=== PATIENT | male | born 1970 | race Caucasian/White ===

== ENCOUNTER 2022-04-02 08:51 | Outpatient (REF) | payer BC, SELFPAY ==
[2022-04-02 11:17] LABS: Hematocrit 48.8 % (42.0-52.0); Hemoglobin 16.2 g/dl (14.0-18.0); Mean Corpuscular HGB Conc 33.2 g/dl (31.0-36.0); Mean Corpuscular Hemoglobin 31.4 pg (27.0-33.0); Mean Corpuscular Volume 94.6 fL (80.0-98.0); Mean Platelet Volume 11.8 fL (9.4-12.4); Platelet Count 253 X10*3/uL (160-400); Red Blood Count 5.16 X10*6/uL (4.60-5.80); Red Cell Distribution Width 12.7 % (11.0-16.0); White Blood Count 5.6 X10*3/uL (4.8-10.8)
[2022-04-02 11:56] LABS: Alanine Aminotransferase 36 U/L (0-40); Albumin Level 4.4 g/dL (3.5-5.0); Alkaline Phosphatase 66 U/L (39-117); Anion Gap 14 (12-20); Aspartate Amino Transferase 25 U/L (5-37); Bilirubin Total 0.4 mg/dL (0.0-1.0); Blood Urea Nitrogen 17 mg/dL (9-16); Calcium 9.1 mg/dL (8.4-10.2); Carbon Dioxide 25 mmol/L (22-29); Chloride 109 mmol/L (96-108); Cholesterol 177 mg/dL; Estimated Glomerular Filt Rate > 60; Glucose Fasting 93 mg/dL (60-99); HDL Cholesterol 28 mg/dL; LDL Cholesterol Calculated 124 mg/dl; Potassium 4.5 mmol/L (3.3-5.1); Sodium 143 mmol/L (135-145); Total Protein 7.3 g/dL (6.5-8.0); Triglycerides 128 mg/dL
[2022-04-02 12:00] LABS: Prostate Specific Antigen Scr 0.29 ng/mL (<0.05-4.0)
== END 2022-04-02 08:52 | disposition home or self-care (01) ==
LOC: HO.HMGCLDS 08:51
PROVIDERS: PCP Internal Medicine; Visit Provider Internal Medicine
DX: Z00.00 Encounter for general adult medical examination without abnormal findings (principal); Z12.5 Encounter for screening for malignant neoplasm of prostate; K21.9 Gastro-esophageal reflux disease without esophagitis
CPT/HCPCS: 36415; 80053; 80061; 84153; 85027

== ENCOUNTER 2022-04-09 10:55 | Outpatient (REF) | payer BC, SELFPAY ==
[2022-04-09 13:33] LABS: Appearance Urine CLEAR; Color Urine YELLOW; Glucose Urine UA NEG (NEG); Leukocyte Esterase Urine NEG (NEG); Nitrite Urine NEG (NEG); Urine Blood NEG (NEG); Urine Ketones NEG (NEG); Urine Protein NEG (NEG-TRACE)
[2022-04-09 13:40] LABS: RBC Urine 0 /HPF (0); WBC Urine 0 /HPF (0-4)
== END 2022-04-09 10:56 | disposition home or self-care (01) ==
LOC: HO.HMGCLNP 10:55
PROVIDERS: PCP Internal Medicine; Visit Provider Internal Medicine
DX: Z00.00 Encounter for general adult medical examination without abnormal findings (principal); K21.9 Gastro-esophageal reflux disease without esophagitis
CPT/HCPCS: 81001

== ENCOUNTER 2023-05-31 13:17 | Outpatient (AMB) | payer BC, SELFPAY ==
[2023-05-31 13:23] VITALS: BP 132/80; PULSE 94; O2SAT 96; BMI 36.3
--- NOTE | 2023-05-31 13:23 | MHC.PC.OV ---
Vital Signs 05/31/23 13:23 Height 6 ft Weight 267 lb 6 oz BMI 36.3 BP 132/80 Blood Pressure Location Lt brachial Position Sitting Pulse 94 Pulse Source Pulse Oximeter Pulse Oximetry (%) 96 Oxygen Delivery Method Room Air Intake Visit Reasons: R side back pain and hip ,numbness Intake Note: pt is here for pain and numbness on his right side of his back and hip for the past 2 months pt says it is the worse at the end of the day of work pt says he gets the pain in his groin area Allergies Milk Containing Products (Dairy) [Milk Containing Products] Adverse Reaction (Verified 05/31/23 13:27) Hives Medication List - Last Reconciled 05/31/23 by Sisi Morrow MD baclofen 10 mg PO BID meloxicam 15 mg PO DAILY omeprazole 20 mg PO DAILY Tobacco use date assessed: 03/03/22 HPI R side back pain and hip ,numbness HPI Details Pt presents c/o R side LBP radiating to RLE , worse when standing or walking. patient complains of right groin pain when walking. He noticed some right thigh tingling sensation and difficulty lifting right leg when walking up the stairs. patient denies any change in bowel or bladder function. patient has to lift heavy chains at work [facility] Medical History Annual physical exam Cough GERD (gastroesophageal reflux disease) Obese Surgical History Hx of colonoscopy Social History Housing: House Patient Tobacco Use Status: Former Tobacco user e-Cigarette/Vaping Use: Never Used service: No Current occupational status: employed Cognitive needs: No Hearing needs: No Vision needs: Yes Questionnaire Thrive Questionnaire Date Thrive assessed: 03/03/22 JUAN C-7 AMB Questionnaire JUAN C-7 Date JUAN C - 7 assessed: 03/03/22 Source: Developed by Drs. Thomas Palmer, Darshana Moeller, Sage Reeder and colleagues, with an educational thomas from [employer] Review of Systems Const All systems reviewed & are unremarkable except as noted in HPI and below Reports no additional complaints Eyes Reports no additional complaints ENT Reports no additional complaints Card Reports no additional complaints Resp Reports no additional complaints GI Reports no additional complaints Physical exam (Primary Care) Vital Signs: Last Vital Signs Pulse 94 05/31/23 13:23 BP 132/80 05/31/23 13:23 Pulse Ox 96 05/31/23 13:23 Oxygen Delivery Method Room Air 05/31/23 13:23 BMI result Body Mass Index 36.3 Tobacco/Smoking Status: Tobacco use Status Tobacco use date assessed 03/03/22 05/31/23 13:30 Patient Tobacco Use Status Former Tobacco user 05/31/23 13:30 e-Cigarette/Vaping Use Never Used 05/31/23 13:30 Thrive Assessment: Date of Thrive Assessment Date Thrive assessed 03/03/22 05/31/23 13:30 Const General: no acute distress HENMT Head: Yes normal to inspection Resp Effort & Inspection: normal respiratory effort Auscultation: clear to auscultation bilaterally Cardio Rhythm: regular rhythm Heart sounds: S1 normal heart sound present and S2 normal heart sound present GI Palpation (GI): Soft to palpation Percussion: Yes normal to percussion Auscultation: normal bowel sounds Back/Spine/Pelvis Other: paraspinal tenderness lower lumbar region right more than left, decreased range of motion lumbar spine, straight leg rising 90 degrees bilaterally. Deep tendon reflexes 0+ bilaterally motor strength 4/5 in the right proximal lower extremity and 5/5 the left lower extremity Extrem General: Yes no clubbing, cyanosis or edema Assessment and Plan Assessment & Plan (1) Sciatica: Code(s): M54.30 - Sciatica, unspecified side Plan: obtain x-ray of lumbar spine and both hips meloxicam and baclofen a prescribed and patient will try physical therapy. Out of work note for 2 weeks until June 19 (2) Hip pain, bilateral: Code(s): M25.551 - Pain in right hip; M25.552 - Pain in left hip Plan: check x-rays of both hips Orders: Orders XR hip BI w PEL1V Today M25.551 - Pain in right hip, M25.552 - Pain in left hip, M54.30 - Sciatica, unspecified side XR lumbar spine 2-3V Today M25.551 - Pain in right hip, M25.552 - Pain in left hip, M54.30 - Sciatica, unspecified side PT Evaluation and Treatment Today M25.551 - Pain in right hip, M25.552 - Pain in left hip, M54.30 - Sciatica, unspecified side Medications: New meloxicam 15 mg PO DAILY 10 tabs 0RF baclofen 10 mg PO BID 30 tabs 0RF Coding Level of Care Code Est Pt Level 3 (69966) Diagnoses Sciatica M54.30 Hip pain, bilateral M25.551; M25.552
== END 2023-05-31 14:14 | disposition home or self-care (01) ==
PROVIDERS: PCP Internal Medicine; Visit Provider Internal Medicine
DX: M54.30 Sciatica, unspecified side (principal); M25.551 Pain in right hip; M25.552 Pain in left hip
CPT/HCPCS: 99213

== ENCOUNTER 2023-05-31 15:45 | Outpatient (REF) | payer BC, SELFPAY ==
--- NOTE | ~2023-05-31 | XR_ITS ---
STUDY: Lumbar spine, AP pelvis and bilateral hips INDICATION: Right hip pain COMPARISON: None TECHNIQUE: 3 view lumbar spine, AP pelvis, AP and frog lateral bilateral hips Lumbar spine: Lumbar lordotic straightening. 5 lumbar type vertebral bodies are identified with multilevel spurring and vertebral body height loss, most pronounced L5. Disc spaces are preserved. Pedicles are intact. Pelvis and hips: Bony pelvis is intact. No fracture, dislocation or significant joint space narrowing. SI joints within normal limits. Mild lesser trochanteric spurring on the left. Left hemipelvic phlebolith. Soft tissue density in the pelvis likely bladder. XR/XR lumbar spine 2-3V IMPRESSION: No acute bony pathology lumbar spine, pelvis and bilateral hips. Lumbar lordotic straightening, degenerative changes and multilevel mild vertebral body height losses. Left lesser trochanteric spurring.
--- NOTE | ~2023-05-31 | XR_ITS ---
STUDY: Lumbar spine, AP pelvis and bilateral hips INDICATION: Right hip pain COMPARISON: None TECHNIQUE: 3 view lumbar spine, AP pelvis, AP and frog lateral bilateral hips Lumbar spine: Lumbar lordotic straightening. 5 lumbar type vertebral bodies are identified with multilevel spurring and vertebral body height loss, most pronounced L5. Disc spaces are preserved. Pedicles are intact. Pelvis and hips: Bony pelvis is intact. No fracture, dislocation or significant joint space narrowing. SI joints within normal limits. Mild lesser trochanteric spurring on the left. Left hemipelvic phlebolith. Soft tissue density in the pelvis likely bladder. XR/XR hip BI w PEL1V IMPRESSION: No acute bony pathology lumbar spine, pelvis and bilateral hips. Lumbar lordotic straightening, degenerative changes and multilevel mild vertebral body height losses. Left lesser trochanteric spurring.
== END 2023-05-31 15:46 | disposition home or self-care (01) ==
LOC: HO.HMGCX 15:45
PROVIDERS: PCP Internal Medicine; Visit Provider Internal Medicine
DX: M25.551 Pain in right hip (principal); M25.552 Pain in left hip; M54.30 Sciatica, unspecified side
CPT/HCPCS: 72100; 73521

== ENCOUNTER 2023-06-19 09:04 | Outpatient (AMB) | payer BC, SELFPAY ==
[2023-06-19 09:44] VITALS: BP 124/82; PULSE 82; O2SAT 99; BMI 35.9
--- NOTE | 2023-06-19 09:44 | A.OFFPC_ITS ---
Vital Signs 06/19/23 09:44 Height 6 ft Weight 265 lb BMI 35.9 BP 124/82 Blood Pressure Location Lt brachial Position Sitting Pulse 82 Pulse Source Pulse Oximeter Pulse Oximetry (%) 99 Oxygen Delivery Method Room Air Intake Visit Reasons: 1m follow up Intake Note: Pt is here today for a 1 month follow up on sciatica pain. Pt states that his pain is the same not any better. Pt states that he gets burning sensation and numbness in his R leg. Allergies Milk Containing Products (Dairy) [Milk Containing Products] Adverse Reaction (Verified 06/19/23 09:48) Hives Medication List - Last Reconciled 06/19/23 by Sisi Morrow MD baclofen 10 mg PO BID meloxicam 15 mg PO DAILY omeprazole 20 mg PO DAILY Tobacco use date assessed: 06/19/23 Dental Screening Dental Screen Date: 06/19/23 Did you have a dental visit in the last 12 months?: Yes Did you have a dental problem in the last 6 months where you did not have access to dental care?: No Was dental information given to patient?: Patient has dentist HPI 1m follow up HPI Details Patient presents for the follow-up of lower back pain radiating to right lower extremity anterior thigh, worse when walking longer distance for 1 month. Patient will be started physical therapy this week. He had some relief with meloxicam. Patient denies change in bowel bladder function, weakness or numbness in extremities. [facility] Medical History Annual physical exam Cough GERD (gastroesophageal reflux disease) Obese Surgical History Hx of colonoscopy Social History Housing: House Patient Tobacco Use Status: Former Tobacco user e-Cigarette/Vaping Use: Never Used service: No Current occupational status: employed Cognitive needs: No Hearing needs: No Vision needs: Yes Questionnaire Thrive Questionnaire Date Thrive assessed: 03/03/22 I am a: Patient What is your living situation today?: I have a steady place to live Within the past 12 months, did the food you bought not last and you didn't have the money to get more?: Never true Within the past 12 months, did you worry whether your food would run out before you got money to buy more?: Never true AUDIT C Alcohol Use Questionnaire (AUDIT-C) 1. How often do you have a drink containing alcohol?: Monthly or less 2. How many drinks containing alcohol do you have on a typical day when you are drinking?: 3 or 4 3. How often do you have six or more drinks on one occasion?: Less than monthly Total Score: 3 JUAN C-7 AMB Questionnaire JUAN C-7 Date JUAN C - 7 assessed: 03/03/22 Feeling nervous, anxious, or on edge: 3 = Nearly every day Not being able to stop or control worryin = Nearly every day Worrying too much about different things: 2 = More than half the days Trouble relaxin = More than half the days Being so restless that it is hard to sit still: 3 = Nearly every day Becoming easily annoyed or irritable: 3 = Nearly every day Feeling afraid as if something awful might happen: 1 = Several days Total JUAN C-7 score (0-4 normal; 5-9 mild; 10-14 moderate; 15-21 severe): 17 Source: Developed by Drs. Thomas Palmer, Darshana Moeller, Sage Reeder and colleagues, with an educational thomas from [employer]. Review of Systems Const All systems reviewed & are unremarkable except as noted in HPI and below Reports no additional complaints Eyes Reports no additional complaints ENT Reports no additional complaints Card Reports no additional complaints Resp Reports no additional complaints GI Reports no additional complaints Reports no additional complaints Physical exam (Primary Care) Vital Signs: Last Vital Signs Pulse 82 06/19/23 09:44 BP 124/82 06/19/23 09:44 Pulse Ox 99 06/19/23 09:44 Oxygen Delivery Method Room Air 06/19/23 09:44 BMI result Body Mass Index 35.9 Tobacco/Smoking Status: Tobacco use Status Tobacco use date assessed 06/19/23 06/19/23 09:51 Patient Tobacco Use Status Former Tobacco user 06/19/23 09:47 e-Cigarette/Vaping Use Never Used 06/19/23 09:47 Thrive Assessment: Date of Thrive Assessment Date Thrive assessed 03/03/22 06/19/23 09:47 Const General: no acute distress HENMT Head: Yes normal to inspection Neck Neck: Yes supple Resp Effort & Inspection: normal respiratory effort Auscultation: clear to auscultation bilaterally Cardio Rhythm: regular rhythm Heart sounds: S1 normal heart sound present and S2 normal heart sound present Back/Spine/Pelvis Other: Decreased range of motion in the lumbar spine, paraspinal tenderness in the lower lumbar region right more than left, straight leg rising 30 degrees on the right 90 degrees on the left deep tendon reflexes 1+ bilaterally Assessment and Plan Assessment & Plan (1) Sciatica: Code(s): M54.30 - Sciatica, unspecified side Plan: Patient will be starting physical therapy meloxicam and baclofen are refilled. he will follow-up in 3 weeks Medications: Refilled baclofen 10 mg PO BID 30 tabs 0RF meloxicam 15 mg PO DAILY 30 tabs 0RF Coding Level of Care Code Est Pt Level 3 (30319) Diagnoses Sciatica M54.30
== END 2023-06-19 10:53 | disposition home or self-care (01) ==
PROVIDERS: PCP Internal Medicine; Visit Provider Internal Medicine
DX: M54.30 Sciatica, unspecified side (principal)
CPT/HCPCS: 99213

== ENCOUNTER 2023-07-21 13:55 | Outpatient (AMB) | payer BC, SELFPAY ==
[2023-07-21 14:01] VITALS: BP 124/80; PULSE 102; O2SAT 98; BMI 36.6
--- NOTE | 2023-07-21 14:01 | MHC.PC.OV ---
Vital Signs 07/21/23 14:01 Height 6 ft Weight 270 lb BMI 36.6 BP 124/80 Blood Pressure Location Lt brachial Position Standing Pulse 102 H Pulse Source Pulse Oximeter Pulse Oximetry (%) 98 Oxygen Delivery Method Room Air Intake Visit Reasons: 1 Month follow up Intake Note: Pt is here today for 1 month follow up visit. Allergies Milk Containing Products (Dairy) [Milk Containing Products] Adverse Reaction (Verified 07/21/23 14:10) Hives Medication List - Last Reconciled 07/21/23 by Sisi Morrow MD omeprazole 20 mg PO DAILY Tobacco use date assessed: 06/19/23 HPI 1 Month follow up HPI Details Patient presents for the follow-up of sciatica. He is feeling better but still complains of bilateral leg/ hip tightness and pain after walking for 1 mile. he is having physical therapy twice a week and has been exercising daily at home. [facility] Medical History Annual physical exam Cough GERD (gastroesophageal reflux disease) Obese Surgical History Hx of colonoscopy Social History Housing: House Patient Tobacco Use Status: Former Tobacco user e-Cigarette/Vaping Use: Never Used service: No Current occupational status: employed Cognitive needs: No Hearing needs: No Vision needs: Yes Questionnaire Thrive Questionnaire Date Thrive assessed: 03/03/22 JUAN C-7 AMB Questionnaire JUAN C-7 Date JUAN C - 7 assessed: 03/03/22 Source: Developed by Drs. Thomas Palmer, Darshana Moeller, Sage Reeder and colleagues, with an educational thomas from [employer]. Review of Systems Const All systems reviewed & are unremarkable except as noted in HPI and below Reports no additional complaints ENT Reports no additional complaints Physical exam (Primary Care) Vital Signs: Last Vital Signs Pulse 102 H 07/21/23 14:01 BP 124/80 07/21/23 14:01 Pulse Ox 98 07/21/23 14:01 Oxygen Delivery Method Room Air 07/21/23 14:01 BMI result Body Mass Index 36.6 Tobacco/Smoking Status: Tobacco use Status Tobacco use date assessed 06/19/23 07/21/23 14:02 Patient Tobacco Use Status Former Tobacco user 07/21/23 14:02 e-Cigarette/Vaping Use Never Used 07/21/23 14:02 Thrive Assessment: Date of Thrive Assessment Date Thrive assessed 03/03/22 07/21/23 14:02 HENMT Head: Yes normal to inspection Neck Neck: Yes supple Resp Effort & Inspection: normal respiratory effort Auscultation: clear to auscultation bilaterally Cardio Rhythm: regular rhythm Heart sounds: S1 normal heart sound present and S2 normal heart sound present Extrem Other: Decreased range of motion lumbar spine, straight leg rising 45 degrees bilaterally decreased range of motion both hips Assessment and Plan Assessment & Plan (1) Annual physical exam: Code(s): Z00.00 - Encounter for general adult medical examination without abnormal findings (2) Sciatica: Code(s): M54.30 - Sciatica, unspecified side Plan: Continue physical therapy and out of work until September 04. Patient will return for physical in 3 months with a fasting labs before. Weight loss discussed with the patient (3) Hip pain, bilateral: Code(s): M25.551 - Pain in right hip; M25.552 - Pain in left hip Orders: Orders Lipid Panel 3 Months Z00.00 - Encounter for general adult medical examination without abnormal findings Complete Blood Count Auto Diff 3 Months Z00.00 - Encounter for general adult medical examination without abnormal findings PSA,Total (Free>4and<10) 3 Months Z00.00 - Encounter for general adult medical examination without abnormal findings Comprehensive [place]. Panel Fast 3 Months Z00.00 - Encounter for general adult medical examination without abnormal findings Medications: Discontinued baclofen Discontinued Reason: Doctor's Order 10 mg PO BID 30 tabs 0RF meloxicam Discontinued Reason: Doctor's Order 15 mg PO DAILY 30 tabs 0RF Coding Level of Care Code Est Pt Level 3 (13860) Diagnoses Annual physical exam Z00.00 Sciatica M54.30 Hip pain, bilateral M25.551; M25.552
== END 2023-07-21 14:53 | disposition home or self-care (01) ==
PROVIDERS: PCP Internal Medicine; Visit Provider Internal Medicine
DX: M25.551 Pain in right hip (principal); M25.552 Pain in left hip; M54.30 Sciatica, unspecified side
CPT/HCPCS: 99213

== ENCOUNTER 2023-08-22 09:00 | Outpatient (RCR) | payer BC, SELFPAY ==
--- NOTE | 2023-06-20 08:48 | MHC.PT.EP ---
[facility] [place] Office [place] Office [place] Office [address] Carmelo Novak [address] [phone] F: [phone] F: [phone] F: [phone] F: [phone] Physical Therapy Plan of Care Date of Evaluation: Date of Surgery: Diagnosis: Sciatica and R hip pain Assessment: Patient is a 53 year old R handed male who presents with s/s consistent with sciatica and hip pain. 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 Patient past medical history is fairly unremarkable and non-contributory. Current impairments include pain, posture, ROM, strength, flexibility, activity tolerance and functional mobility. Functional limitations include decreased ability to lift, carry, walk, push, pull, sleep, and maintain positions. Patient is motivated with good rehab potential. Skilled PT will address impairments and functional limitations in order to achieve goals. Frequency and Duration: The patient will be seen 2x/week for 5 weeks. Short Term Goals: I with HEP - 2 week Lumbar AROM rotation - 75 - 3 weeks HS flex lacking 25 b/l - 3 weeks Development Intern Goals: Oswestry 20% or better - 5 weeks Max pain with work/sleep - 3/10 - 5 weeks Able to stand/work/walk > 2 hours without increased pain - 5 weeks Treatment Plan: Modalities to reduce pain, spasms and effusion. Manual therapy to restore motion and function. Therapeutic exercise to improve strength and flexibility. Neuromuscular re-education for posture and balance. Therapeutic activities to return to functional activities of daily living. Electronically signed by: Miguel Montenegro, PT Please sign and return to therapist. Thank you for your referral.
--- NOTE | 2023-11-21 14:34 | MHC.PT.DC ---
[facility] [place] Office [place] [facility] [place] Office [address] Carmelo Novak [address] [phone] F: [phone] F: [phone] F: [phone] F: [phone] Physical Therapy Discharge Report Diagnosis: Sciatica and R hip pain Date of Surgery: Date of Evaluation: 06/20/23 Date of Discharge: 09/27/23 Treatments to Date: 14 Cancellations to Date: No Shows to Date: Discharge Status: Improved Function Independent with HEP Discharge Summary: 08/22/23: pt progressed well over the course of skilled PT. LEFS improved by 16 pts. He is I with HEP. AROM rotation is 75 and pain free. HS flex lacking 22 b/l. His max pain with sleep is 3/10 and he is able to walk about 1 mile, 4 times per day without increased pain. He is appropriate to d/c to HEP at this time. 08/15/23: pt progressing well overall but did have minor setback secondary to flu last week. we were able to continue with strength and stretching to tolerance. 08/08/23: pt progressing well with skilled PT. able to tolerate TM walking and strength well. no adverse reactions. continue to progress as tolerated. 08/02/23: pt continues to progress with strength and higher level activities. no adverse reactions today. continue to progress as tolerated. 07/25/23: pt has been progressing well still. we have been adding strength and functional activities. no adverse reactions. 07/21/23: pt progressing well with skilled PT, but still painful after 40 minutes of standing/walking (about 15 on evaluation). we will continue to progress until d/c to HEP. 07/19/23: pt with L hip pain presenting for first time today. we did discuss and address this, reviewed imaging as well with appropriate edu related to findings. 07/14/23: pt has been feeling less symptomatic and able to walk more. less TTP. less pain with higher level activities. 07/11/23: continuing to improve with skilled PT. functional improvements include walking and transfers. 07/07/23: pt is progressing well with skilled PT. Able to walk more. LEss pain with activity and at rest. Improved ease with transfers. 07/03/23: Pt notes having a lot of pain walking 1.5 miles yesterday. we will continue to adjust HEP to address this. added hip pendulums and re-issued HEP today. 06/30/23: good response to manual intervention. we will continue to work hip flex strength and functional strength. 06/26/23: added PB flexion for HEP. no adverse reactions today. pt compliant with program so far. responding well. 06/23/23: pt progressed with stretching and strength. cues given as needed and hep updated. cues required for row/ext to depress scap. Patient is a 53 year old R handed male who presents with s/s consistent with sciatica and hip pain. 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 Patient past medical history is fairly unremarkable and non-contributory. Current impairments include pain, posture, ROM, strength, flexibility, activity tolerance and functional mobility. Functional limitations include decreased ability to lift, carry, walk, push, pull, sleep, and maintain positions. Patient is motivated with good rehab potential. Skilled PT will address impairments and functional limitations in order to achieve goals. Electronically signed by: Miguel Montenegro, PT Please sign and return to therapist. Thank you for your referral.
== END 2023-11-21 14:34 | disposition home or self-care (01) ==
LOC: HO.PTCHIC 09:00
PROVIDERS: PCP Internal Medicine; Visit Provider Internal Medicine
DX: M54.30 Sciatica, unspecified side (principal); M25.551 Pain in right hip; M25.552 Pain in left hip
CPT/HCPCS: 97110; 97140; 97161

== ENCOUNTER 2023-10-14 06:45 | Outpatient (REF) | payer BC, SELFPAY ==
[2023-10-14 10:55] LABS: MANUAL DIFF FLAG NO
[2023-10-14 11:10] LABS: Basophils Absolute Auto 0.1 X10*3/uL (0.0-0.2); Basophils Percent Auto 0.6 % (0-2); Eosinophils Absolute Auto 0.2 X10*3/uL (0.0-0.4); Eosinophils Percent Auto 2.1 % (0-4); Hematocrit 48.8 % (42.0-52.0); Hemoglobin 15.8 g/dl (14.0-18.0); Imm Gran Abs Auto 0.03 X10*3/uL (0.00-0.03); Imm Gran Pct Auto 0.3 % (0.0-0.4); Lymphocytes Absolute Auto 1.1 X10*3/uL (1.2-4.9); Lymphocytes Percent Auto 12.5 % (20-40); Mean Corpuscular HGB Conc 32.4 g/dl (31.0-36.0); Mean Corpuscular Hemoglobin 30.3 pg (27.0-33.0); Mean Corpuscular Volume 93.7 fL (80.0-98.0); Mean Platelet Volume 11.3 fL (9.4-12.4); Monocytes Absolute Auto 0.9 X10*3/uL (0.1-1.2); Monocytes Percent Auto 10.4 % (2-11); Neutrophils Absolute Auto 6.7 x10*3/uL (2.0-8.3); Neutrophils Percent Auto 74.1 % (45-73); Platelet Count 236 X10*3/uL (160-400); Red Blood Count 5.21 X10*6/uL (4.60-5.80)
[2023-10-14 11:15] LABS: Alanine Aminotransferase 33 U/L (0-40); Albumin Level 4.3 g/dL (3.5-5.0); Alkaline Phosphatase 61 U/L (39-117); Anion Gap 13 (12-20); Aspartate Amino Transferase 23 U/L (5-37); Bilirubin Total 0.5 mg/dL (0.0-1.0); Blood Urea Nitrogen 18 mg/dL (9-16); Carbon Dioxide 24 mmol/L (22-29); Chloride 109 mmol/L (96-108); Cholesterol 174 mg/dL (<200); Estimated Glomerular Filt Rate > 60; Glucose Fasting 86 mg/dL (60-99); HDL Cholesterol 30 mg/dL (>40); LDL Cholesterol Calculated 122 mg/dL (<100); Potassium 4.2 mmol/L (3.3-5.1); Sodium 142 mmol/L (135-145); Total Protein 7.4 g/dL (6.5-8.0); Triglycerides 110 mg/dL (<150)
== END 2023-10-14 06:46 | disposition home or self-care (01) ==
LOC: HO.HMGCLDS 06:45
PROVIDERS: PCP Internal Medicine; Visit Provider Internal Medicine
DX: Z00.00 Encounter for general adult medical examination without abnormal findings (principal); Z12.5 Encounter for screening for malignant neoplasm of prostate
CPT/HCPCS: 36415; 80053; 80061; 84153; 85025

== ENCOUNTER 2023-10-25 07:32 | Outpatient (AMB) | payer BC, SELFPAY ==
--- NOTE | 2023-10-25 07:54 | MHC.PC.OV ---
Vital Signs 10/25/23 07:56 Height 6 ft Weight 278 lb BMI 37.7 BP 120/82 Blood Pressure Location Rt brachial Position Sitting Pulse 76 Pulse Source Pulse Oximeter Pulse Oximetry (%) 98 Oxygen Delivery Method Room Air Intake Visit Reasons: Follow up complex Allergies Milk Containing Products (Dairy) [Milk Containing Products] Adverse Reaction (Verified 10/25/23 07:56) Hives Medication List - Last Reconciled 10/25/23 by Sisi Morrow MD omeprazole 20 mg PO DAILY Tobacco use date assessed: 06/19/23 Dental Screening Dental Screen Date: 10/25/23 Did you have a dental visit in the last 12 months?: Yes Did you have a dental problem in the last 6 months where you did not have access to dental care?: No Was dental information given to patient?: Patient has dentist HPI HPI Comments History of Present Illness Details Patient presents for physical. he complains of chronic bilateral ankle pain worse at the end of the day when standing at work for 10 hours. Patient denies any injury or joint swelling. [facility] Medical History (Updated 10/25/23 @ 08:03 by Sisi Morrow MD) Obese GERD (gastroesophageal reflux disease) Annual physical exam Cough Surgical History (Updated 10/25/23 @ 08:12 by Sisi Morrow MD) Hx of colonoscopy Social History Housing: House Patient Tobacco Use Status: Former Tobacco user e-Cigarette/Vaping Use: Never Used service: No Current occupational status: employed Cognitive needs: No Hearing needs: No Vision needs: Yes Questionnaire Thrive Questionnaire Date Thrive assessed: 03/03/22 JUAN C-7 AMB Questionnaire JUAN C-7 Date JUAN C - 7 assessed: 03/03/22 Source: Developed by Drs. Thomas Palmer, Darshana Moeller, Sage Reeder and colleagues, with an educational thomas from [employer]. Review of Systems Const All systems reviewed & are unremarkable except as noted in HPI and below Reports no additional complaints Eyes Reports no additional complaints ENT Reports no additional complaints Card Reports no additional complaints Resp Reports no additional complaints GI Reports no additional complaints Reports no additional complaints Physical exam (Primary Care) Vital Signs: Last Vital Signs Pulse 76 10/25/23 07:56 BP 120/82 10/25/23 07:56 Pulse Ox 98 10/25/23 07:56 Oxygen Delivery Method Room Air 10/25/23 07:56 BMI result Body Mass Index 37.7 Tobacco/Smoking Status: Tobacco use Status Tobacco use date assessed 06/19/23 10/25/23 07:56 Patient Tobacco Use Status Former Tobacco user 10/25/23 07:56 e-Cigarette/Vaping Use Never Used 10/25/23 07:56 Thrive Assessment: Date of Thrive Assessment Date Thrive assessed 03/03/22 10/25/23 07:56 Const General: no acute distress HENMT Face and sinus: Yes normal facial exam Mouth: Normal oral and palatal mucosa present Throat: Yes posterior oropharynx normal Eyes General: appearance normal, both eyes and all related structures Neck Neck: Yes no lymphadenopathy and Yes supple Resp Effort & Inspection: normal respiratory effort Auscultation: clear to auscultation bilaterally Cardio Rhythm: regular rhythm Heart sounds: S1 normal heart sound present and S2 normal heart sound present GI Inspection: Yes normal to inspection Palpation (GI): Soft to palpation Percussion: Yes normal to percussion Auscultation: normal bowel sounds Extrem Other: Both ankles with full range of motion no joint swelling erythema warmth Assessment and Plan Assessment & Plan (1) Ankle pain, chronic: Code(s): M25.579 - Pain in unspecified ankle and joints of unspecified foot; G89.29 - Other chronic pain Plan: Obtain x-rays, PT was recommended but patient declined. (2) Cough: Code(s): R05.9 - Cough, unspecified (3) Annual physical exam: Code(s): Z00. - Encounter for general adult medical examination without abnormal findings Plan: Well-balanced diet regular physical activity weight loss discussed with the patient. Physical in 1 year with fasting labs before Orders: Orders XR ankle LT 2V Today G89.29 - Other chronic pain, M25.579 - Pain in unspecified ankle and joints of unspecified foot XR ankle RT 2V Today G89.29 - Other chronic pain, M25.579 - Pain in unspecified ankle and joints of unspecified foot XR chest 1V Today R05.9 - Cough, unspecified UA w Microscopic 365 Days Z00.00 - Encounter for general adult medical examination without abnormal findings Comprehensive [place]. Panel Fast 365 Days Z00.00 - Encounter for general adult medical examination without abnormal findings Complete Blood Count Auto Diff 365 Days Z00.00 - Encounter for general adult medical examination without abnormal findings Lipid Panel 365 Days Z00.00 - Encounter for general adult medical examination without abnormal findings PSA,Total (Free>4and<10) 365 Days Z00.00 - Encounter for general adult medical examination without abnormal findings Coding Level of Care Code Est Pt Prev Care 40-64y(23119) Diagnoses Ankle pain, chronic M25.579; G89.29 Cough R05.9 Annual physical exam Z00.00
[2023-10-25 07:56] VITALS: BP 120/82; PULSE 76; O2SAT 98; BMI 37.7
== END 2023-10-25 08:24 | disposition home or self-care (01) ==
PROVIDERS: PCP Internal Medicine; Visit Provider Internal Medicine
DX: M25.579 Pain in unspecified ankle and joints of unspecified foot (principal); G89.29 Other chronic pain; R05.9 Cough, unspecified; Z00.00 Encounter for general adult medical examination without abnormal findings
CPT/HCPCS: 99396

== ENCOUNTER 2023-11-11 10:03 | Outpatient (REF) | payer BC, SELFPAY ==
--- NOTE | ~2023-11-11 | XR_ITS ---
EXAMINATION: XR CHEST CLINICAL INFORMATION: Cough. COMPARISON: None available. TECHNIQUE: Frontal view of the chest was obtained. FINDINGS: Lung volumes are low. There is no gross pneumothorax. Cardiomediastinal silhouette difficult to evaluate due to low lung volumes. Moderate patchy bibasilar opacities, left greater than right, may represent pneumonia. XR/XR chest 1V IMPRESSION: Moderate patchy bibasilar opacities, left greater than right, may represent pneumonia. Low lung volumes. Recommend follow-up imaging in 4-6 weeks to confirm resolution and exclude underlying pathology. This study was presented today 11/15/2023 at 10:50 AM for interpretation. PSA staff will provide results to referring provider at this time.
--- NOTE | ~2023-11-11 | XR_ITS ---
EXAMINATION: XR ANKLE, RIGHT XR ANKLE, LEFT CLINICAL INFORMATION: Pain in unspecified ankle and joints of foot. COMPARISON: None available. TECHNIQUE: 3 views of each ankle. FINDINGS: RIGHT ANKLE: Small dorsal and plantar calcaneal spurs. Moderate degenerative changes at the ankle. Alignment preserved. LEFT ANKLE: Small dorsal calcaneal spur. Abundant hypertrophic change at the dorsal aspect of the midfoot with possible destructive component. Dedicated views of the foot recommended for further evaluation. A 9 mm ossicle inferior to the lateral malleolus of indeterminate age and etiology. XR/XR ankle RT 2V IMPRESSION: RIGHT ANKLE: Small dorsal and plantar calcaneal spurs. LEFT ANKLE: 1. Abundant hypertrophic change at the dorsal aspect of the midfoot with possible destructive component. Dedicated views of the foot recommended for further evaluation. 2. Small dorsal calcaneal spur. 3. A 9 mm ossicle inferior to the lateral malleolus of indeterminate age and etiology. Recommend follow-up imaging in 10-14 days if fracture is suspected.
--- NOTE | ~2023-11-11 | XR_ITS ---
EXAMINATION: XR ANKLE, RIGHT XR ANKLE, LEFT CLINICAL INFORMATION: Pain in unspecified ankle and joints of foot. COMPARISON: None available. TECHNIQUE: 3 views of each ankle. FINDINGS: RIGHT ANKLE: Small dorsal and plantar calcaneal spurs. Moderate degenerative changes at the ankle. Alignment preserved. LEFT ANKLE: Small dorsal calcaneal spur. Abundant hypertrophic change at the dorsal aspect of the midfoot with possible destructive component. Dedicated views of the foot recommended for further evaluation. A 9 mm ossicle inferior to the lateral malleolus of indeterminate age and etiology. XR/XR ankle LT 2V IMPRESSION: RIGHT ANKLE: Small dorsal and plantar calcaneal spurs. LEFT ANKLE: 1. Abundant hypertrophic change at the dorsal aspect of the midfoot with possible destructive component. Dedicated views of the foot recommended for further evaluation. 2. Small dorsal calcaneal spur. 3. A 9 mm ossicle inferior to the lateral malleolus of indeterminate age and etiology. Recommend follow-up imaging in 10-14 days if fracture is suspected.
== END 2023-11-11 10:04 | disposition home or self-care (01) ==
LOC: HO.HMGCX 10:03
PROVIDERS: PCP Internal Medicine; Visit Provider Internal Medicine
DX: M25.571 Pain in right ankle and joints of right foot (principal); M25.572 Pain in left ankle and joints of left foot; R05.9 Cough, unspecified; G89.29 Other chronic pain
CPT/HCPCS: 71045; 73600

== ENCOUNTER 2023-12-09 11:08 | Outpatient (REF) | payer BC, SELFPAY ==
--- NOTE | ~2023-12-09 | XR_ITS ---
EXAMINATION: XR CHEST CLINICAL INFORMATION: Pneumonia COMPARISON: Radius chest x-ray 11/11/2023 TECHNIQUE: 2 views of the chest were obtained. FINDINGS: No significant abnormality is noted involving the heart, lungs, mediastinum, bony thorax or soft tissues. Degenerative changes of the spine. XR/XR chest 2V IMPRESSION: Unremarkable examination. No evidence of pneumonia.
--- NOTE | ~2023-12-09 | XR_ITS ---
EXAMINATION: XR foot LT min 3V CLINICAL INFORMATION: Reason for Exam M79.672 - Pain in left foot COMPARISON: None. TECHNIQUE: AP, lateral, and oblique views of the left foot FINDINGS: * No acute fracture or dislocation. * Dorsal midfoot degenerative changes with spurring. Insertional enthesopathy. * No soft tissue abnormality. XR/XR foot LT min 3V IMPRESSION: No acute fracture or dislocation. Dorsal midfoot degenerative changes with spurring. Insertional enthesopathy.
== END 2023-12-09 11:09 | disposition home or self-care (01) ==
LOC: HO.HMGCX 11:08
PROVIDERS: PCP Internal Medicine; Visit Provider Internal Medicine
DX: M79.672 Pain in left foot (principal); J18.9 Pneumonia, unspecified organism
CPT/HCPCS: 71046; 73630

== ENCOUNTER 2024-04-19 13:29 | Outpatient (AMB) | payer BC, SELFPAY ==
[2024-04-19 13:32] VITALS: BP 158/80; PULSE 105; O2SAT 94; BMI 40.9
--- NOTE | 2024-04-19 13:32 | MHC.OFFVIS ---
Vital Signs 04/19/24 13:32 Height 5 ft 10.28 in Weight 287 lb 4.197 oz BMI 40.9 BP 158/80 H Blood Pressure Location Rt brachial Position Sitting Pulse 105 H Pulse Source Pulse Oximeter Pulse Oximetry (%) 94 Oxygen Delivery Method Room Air Intake Visit Reasons: Joint Pain Intake Note: New patient, internally referred, presents to office today for joint pain. He is accompanied by his who will be facilitating the communication. He reports pain in multiple joints. Pain started over 10 years ago Senior Staff Specialized Employment Required: Yes Senior Staff Specialized Employment Language: Mohawk Senior Staff Specialized Employment Name: - form signed Accompanied by: Allergies Milk Containing Products (Dairy) [Milk Containing Products] Adverse Reaction (Verified 04/19/24 13:38) Hives HPI Comments Details: Mr. Davies 54 yoM, accompanied by his who translates, on referral from his PCP, for chronic pain of many years to ankle, foot and shoulder that has worsened in the last year. his shares that he is not one who complains and is always ready to do things and get things done. However, she has noticed in the last year, that he walks like a duck and cannot do as much as before because of pain in the feet. --affect walking, sleep --advil doesn't help --aspercreme with lidocaine helps feet - top and bottom --resting his hand on table causes pain to shoot up to elbow, more frequent on the right --stiffness after sitting, takes about 15- 20 minutes to loosen up --Hip pain used to radiate down the right leg before PT- that does not radiate anymore. Before PT, he could not go into the car due to pain in left hip and back. --hard to do hard work now - used to be very active --denies dry eyes, mouth, mouth sores, rashes, chronic fevers, --denies GI and concerns. --denies photosensitivity right pip #2 sore, left 4th CMC sore. right tennis elbow --ulnar paraethesia --non-pitting swelling to LLE. --left lateral hip tenderness/ L>R PFSH Medical History (Updated 04/20/24 @ 14:50 by IBAN Basurto-KEREN) Leg edema, left Osteoarthritis of midfeet, bilateral Complaint of paresthesia Muscle weakness Pain in both hands Obese GERD (gastroesophageal reflux disease) Annual physical exam Cough Surgical History Hx of colonoscopy Social History Housing: House Patient Tobacco Use Status: Former Tobacco user e-Cigarette/Vaping Use: Never Used service: No Current occupational status: employed Cognitive needs: No Hearing needs: No Vision needs: Yes Review of Systems Const All systems reviewed & are unremarkable except as noted in HPI and below Physical Exam Vital Signs: Last Vital Signs Pulse 105 H 04/19/24 13:32 BP 158/80 H 04/19/24 13:32 Pulse Ox 94 04/19/24 13:32 Oxygen Delivery Method Room Air 04/19/24 13:32 BMI result Body Mass Index 40.9 APPEARANCE: Patient in no acute distress EYES no redness, normal EARS:? External ear normal. NOSE/SINUS:? Airflow through both nares, no nasal discharge, no bleeding THROAT:? Oral mucosa moist, no ulcerations NECK:? No thyromegaly or masses, no adenopathy, trachea midline. HEART:? Regular rhythm, S1-S2 heard, no murmurs, rubs or gallops. LUNG:? Clear to percussion and auscultation EXTREMITIES:?non-pitting swelling to LLE., no calf tenderness, normal peripheral pulses. NEURO:? Oriented and alert x3.? No focal weakness.? Reflexes symmetric.? Gait antalgic. SKIN:? There are no skin lesions evident. No objective signs of Raynaud's phenomenon. JOINT EXAM: Cervical Spine:.? Full range of motion without pain; no tenderness. Thoracic Spine:.? No scoliosis.? No tenderness on palpation. Lumbar Spine:.? Alignment normal.? Full range of motion without pain, no tenderness. Chest Wall:.? No tenderness, swelling, increased warmth or erythema Hands:.? Normal pain-free range of motion without tenderness, swelling, increased warmth or erythema. Able to make a full fist and has a good food service tray attendant strength. right pip #2 mild tender, left 4th CMC mild tenderness. Positive Phalens Wrists:.? Normal pain-free range of motion without tenderness, swelling, increased warmth or erythema. Elbows:. Left: Normal pain-free range of motion without tenderness, swelling, increased warmth or erythema. right olecranon tenderness but no swelling, warmth or erythema Shoulders:.?? Full range of motion without pain. No tenderness, weakness, swelling, increased warmth or erythema. Hips:.? Full range of motion without pain. Hip bursa:.?left lateral hip tenderness/ L>R Knees:.?? Normal pain-free range of motion without tenderness, swelling, increased warmth or erythema.? There is no effusion or crepitation Ankles:.? Normal range of motion with soreness and with tenderness, trace swelling but no increased warmth or erythema. tenderness at heel plantar Feet:.? Normal range of motion with soreness and with tenderness, trace swelling but no increased warmth or erythema. Tender points:? No tenderness to digital palpation at the occiput, trapezius, second rib, lateral epicondyle, knees, greater trochanter and gluteal area bilaterally. Results Reviewed Results Reviewed: Laboratory Tests 10/14/23 07:08 WBC 9.0 RBC 5.21 Hgb 15.8 Hct 48.8 Creatinine 0.95 AST 23 ALT 33 XAMINATION: XR foot LT min 3V CLINICAL INFORMATION: Reason for Exam M79.672 - Pain in left foot COMPARISON: None. TECHNIQUE: AP, lateral, and oblique views of the left foot FINDINGS: * No acute fracture or dislocation. * Dorsal midfoot degenerative changes with spurring. Insertional enthesopathy. * No soft tissue abnormality. XR/XR foot LT min 3V IMPRESSION: No acute fracture or dislocation. Dorsal midfoot degenerative changes with spurring. Insertional enthesopathy. TECHNIQUE: 3 views of each ankle. FINDINGS: RIGHT ANKLE: Small dorsal and plantar calcaneal spurs. Moderate degenerative changes at the ankle. Alignment preserved. LEFT ANKLE: Small dorsal calcaneal spur. Abundant hypertrophic change at the dorsal aspect of the midfoot with possible destructive component. Dedicated views of the foot recommended for further evaluation. A 9 mm ossicle inferior to the lateral malleolus of indeterminate age and etiology. XR/XR ankle RT 2V IMPRESSION: RIGHT ANKLE: Small dorsal and plantar calcaneal spurs. LEFT ANKLE: 1. Abundant hypertrophic change at the dorsal aspect of the midfoot with possible destructive component. Dedicated views of the foot recommended for further evaluation. 2. Small dorsal calcaneal spur. 3. A 9 mm ossicle inferior to the lateral malleolus of indeterminate age and etiology. [facility] [place] [address] XRay Report Signed Patient: Irineo Davies MR#: [id number] : 1970 Acct:[id number] Age/Sex: 53 / M ADM Date: 05/31/23 [facility] Att[facility]: Sisi Morrow MD Ordering Physician: Sisi Morrow MD Date of Service: 05/31/23 Procedure(s): XR lumbar spine 2-3V Accession Number(s): [id number] cc: Sisi Morrow MD~ STUDY: Lumbar spine, AP pelvis and bilateral hips INDICATION: Right hip pain COMPARISON: None TECHNIQUE: 3 view lumbar spine, AP pelvis, AP and frog lateral bilateral hips Lumbar spine: Lumbar lordotic straightening. 5 lumbar type vertebral bodies are identified with multilevel spurring and vertebral body height loss, most pronounced L5. Disc spaces are preserved. Pedicles are intact. Pelvis and hips: Bony pelvis is intact. No fracture, dislocation or significant joint space narrowing. SI joints within normal limits. Mild lesser trochanteric spurring on the left. Left hemipelvic phlebolith. Soft tissue density in the pelvis likely bladder. XR/XR lumbar spine 2-3V IMPRESSION: No acute bony pathology lumbar spine, pelvis and bilateral hips. Lumbar lordotic straightening, degenerative changes and multilevel mild vertebral body height losses. Left lesser trochanteric spurring. Assessment & Plan Assessment & Plan (1) Pain in both hands: Code(s): M79.641 - Pain in right hand; M79.642 - Pain in left hand Category: Medical (2) Complaint of paresthesia: Code(s): R20.2 - Paresthesia of skin Category: Medical (3) Osteoarthritis of midfeet, bilateral: Code(s): M19.071 - Primary osteoarthritis, right ankle and foot; M19.072 - Primary osteoarthritis, left ankle and foot Category: Medical (4) Muscle weakness: Code(s): M62.81 - Muscle weakness (generalized) Category: Medical (5) Leg edema, left: Code(s): R60.0 - Localized edema Category: Medical Plan #Osteoarthritis multiple joints: At initial review of history, PE and analysis of available labs and imaging I personal reviewed, I do not see a clinical presentation for an inflammatory arthritis or CTD process. There is moderate to severe osteoarthritis to the bilateral midfoot, which can also cause midfoot impingement syndrome, the pain he also feels at the the outer side of the top of the midfoot.?As noted in the HPI, his feet are the most painful now with prolonged activities. There ia also knee and hand pain that bothers him, knuckle tenderness - will obtain imaging for both #Myalgia/Cramping and Parethesia hands and feet: I think he would benefit from an EMG study. Will obtain CK and aldolase for muscle breakdown. #LLE Edema - He will address with PCP - non-pitting. f/u 1 month Spent 40 minutes reviewing history, evaluating patient, and documenting Orders: Orders Erythrocyte Sedimentation Rate 04/19/24 G89.29 - Other chronic pain, M25.50 - Pain in unspecified joint, M25.579 - Pain in unspecified ankle and joints of unspecified foot, M79.672 - Pain in left foot Complete Blood Count Auto Diff 04/19/24 G89.29 - Other chronic pain, M25.50 - Pain in unspecified joint, M25.579 - Pain in unspecified ankle and joints of unspecified foot, M79.672 - Pain in left foot Comprehensive Met. Panel 04/19/24 G89.29 - Other chronic pain, M25.50 - Pain in unspecified joint, M25.579 - Pain in unspecified ankle and joints of unspecified foot, M79.672 - Pain in left foot C Reactive Protein 04/19/24 G89.29 - Other chronic pain, M25.50 - Pain in unspecified joint, M25.579 - Pain in unspecified ankle and joints of unspecified foot, M79.672 - Pain in left foot Creatine Kinase Total 04/19/24 G89.29 - Other chronic pain, M25.50 - Pain in unspecified joint, M25.579 - Pain in unspecified ankle and joints of unspecified foot, M79.672 - Pain in left foot FERCHO Reflex Titer and Pattern 04/19/24 G89.29 - Other chronic pain, M25.50 - Pain in unspecified joint, M25.579 - Pain in unspecified ankle and joints of unspecified foot, M79.672 - Pain in left foot Anti-Centromere B Antibodies 04/19/24 G89.29 - Other chronic pain, M25.50 - Pain in unspecified joint, M25.579 - Pain in unspecified ankle and joints of unspecified foot, M79.672 - Pain in left foot Anti Extractable Nuclear Ag 04/19/24 G89.29 - Other chronic pain, M25.50 - Pain in unspecified joint, M25.579 - Pain in unspecified ankle and joints of unspecified foot, M79.672 - Pain in left foot Immunofixation Pnl, Serum 04/19/24 G89.29 - Other chronic pain, M25.50 - Pain in unspecified joint, M25.579 - Pain in unspecified ankle and joints of unspecified foot, M79.672 - Pain in left foot Scleroderma 70 Antibody 04/19/24 G89.29 - Other chronic pain, M25.50 - Pain in unspecified joint, M25.579 - Pain in unspecified ankle and joints of unspecified foot, M79.672 - Pain in left foot Sjogren's Antibodies 04/19/24 G89.29 - Other chronic pain, M25.50 - Pain in unspecified joint, M25.579 - Pain in unspecified ankle and joints of unspecified foot, M79.672 - Pain in left foot Uric Acid 04/19/24 G89.29 - Other chronic pain, M25.50 - Pain in unspecified joint, M25.579 - Pain in unspecified ankle and joints of unspecified foot, M79.672 - Pain in left foot UA w Microscopic 04/19/24 G89.29 - Other chronic pain, M25.50 - Pain in unspecified joint, M25.579 - Pain in unspecified ankle and joints of unspecified foot, M79.672 - Pain in left foot XR hand LT 2V 04/19/24 M79.641 - Pain in right hand, M79.642 - Pain in left hand Aldolase 04/19/24 G89.29 - Other chronic pain, M25.50 - Pain in unspecified joint, M25.579 - Pain in unspecified ankle and joints of unspecified foot, M79.672 - Pain in left foot Anti DNA DS Antibody 04/19/24 G89.29 - Other chronic pain, M25.50 - Pain in unspecified joint, M25.579 - Pain in unspecified ankle and joints of unspecified foot, M79.672 - Pain in left foot Angiotensin Converting Enzyme 04/19/24 G89.29 - Other chronic pain, M25.50 - Pain in unspecified joint, M25.579 - Pain in unspecified ankle and joints of unspecified foot, M79.672 - Pain in left foot Complement C3 04/19/24 G89.29 - Other chronic pain, M25.50 - Pain in unspecified joint, M25.579 - Pain in unspecified ankle and joints of unspecified foot, M79.672 - Pain in left foot Complement C4 04/19/24 G89.29 - Other chronic pain, M25.50 - Pain in unspecified joint, M25.579 - Pain in unspecified ankle and joints of unspecified foot, M79.672 - Pain in left foot Immunoglobulins,IgG IgA IgM 04/19/24 G89.29 - Other chronic pain, M25.50 - Pain in unspecified joint, M25.579 - Pain in unspecified ankle and joints of unspecified foot, M79.672 - Pain in left foot Protein Electrophoresis, Serum 04/19/24 G89.29 - Other chronic pain, M25.50 - Pain in unspecified joint, M25.579 - Pain in unspecified ankle and joints of unspecified foot, M79.672 - Pain in left foot Cyclic Citrullinated Peptide 04/19/24 G89.29 - Other chronic pain, M25.50 - Pain in unspecified joint, M25.579 - Pain in unspecified ankle and joints of unspecified foot, M79.672 - Pain in left foot Rheumatoid Factor 04/19/24 G89.29 - Other chronic pain, M25.50 - Pain in unspecified joint, M25.579 - Pain in unspecified ankle and joints of unspecified foot, M79.672 - Pain in left foot HLA B27 04/19/24 M25.50 - Pain in unspecified joint, M79.672 - Pain in left foot XR hand RT 2V 04/19/24 M79.641 - Pain in right hand, M79.642 - Pain in left hand NE electromyogram (EMG) Today M25.50 - Pain in unspecified joint, M62.81 - Muscle weakness (generalized), R20.2 - Paresthesia of skin Coding Level of Care Code New Pt Level 4 (73413) Diagnoses Pain in both hands M79.641; M79.642 Complaint of paresthesia R20.2 Osteoarthritis of midfeet, bilateral M19.071; M19.072 Muscle weakness M62.81 Leg edema, left R60.0
== END 2024-04-19 14:19 | disposition home or self-care (01) ==
PROVIDERS: PCP Internal Medicine; Visit Provider Nurse Practitioner Family
DX: M79.641 Pain in right hand (principal); M79.642 Pain in left hand; R20.2 Paresthesia of skin; M19.071 Primary osteoarthritis, right ankle and foot; M19.072 Primary osteoarthritis, left ankle and foot; M62.81 Muscle weakness (generalized); R60.0 Localized edema
CPT/HCPCS: 99204

== ENCOUNTER → 2024-04-19 13:29 | Outpatient (BNVA) | payer BC, SELFPAY | PROVIDERS: PCP Internal Medicine; Visit Provider Nurse Practitioner Family ==

== ENCOUNTER 2024-05-03 12:39 | Outpatient (REF) | payer BC, SELFPAY ==
--- NOTE | ~2024-05-03 | XR_ITS ---
EXAMINATION: X-RAY RIGHT HAND X-RAY LEFT HAND CLINICAL INFORMATION: Pain in bilateral hands. COMPARISON: None available. TECHNIQUE: 3 views of each hand. FINDINGS: Right hand: Bone mineralization is normal. Moderate degenerative changes in the first carpometacarpal and metacarpophalangeal joints with joint space narrowing and hypertrophic change. Small calcific/ossific foci adjacent to the ulnar styloid of indeterminate age and etiology. Small cystic lucency in the capitate. Bony exostosis along the proximal diametaphysis of the second metacarpal. Mild degenerative changes in multiple IP joints. Left hand: Bone mineralization is normal. Moderate degenerative changes in the first carpometacarpal and metacarpophalangeal joints with joint space narrowing and hypertrophic change. Mild degenerative changes involving multiple IP joints. XR/XR hand LT min 3V IMPRESSION: [id number] degenerative changes in bilateral hands.
--- NOTE | ~2024-05-03 | XR_ITS ---
EXAMINATION: X-RAY RIGHT HAND X-RAY LEFT HAND CLINICAL INFORMATION: Pain in bilateral hands. COMPARISON: None available. TECHNIQUE: 3 views of each hand. FINDINGS: Right hand: Bone mineralization is normal. Moderate degenerative changes in the first carpometacarpal and metacarpophalangeal joints with joint space narrowing and hypertrophic change. Small calcific/ossific foci adjacent to the ulnar styloid of indeterminate age and etiology. Small cystic lucency in the capitate. Bony exostosis along the proximal diametaphysis of the second metacarpal. Mild degenerative changes in multiple IP joints. Left hand: Bone mineralization is normal. Moderate degenerative changes in the first carpometacarpal and metacarpophalangeal joints with joint space narrowing and hypertrophic change. Mild degenerative changes involving multiple IP joints. XR/XR hand RT min 3V IMPRESSION: [id number] degenerative changes in bilateral hands.
[2024-05-03 16:08] LABS: MANUAL DIFF FLAG NO
[2024-05-03 16:28] LABS: Basophils Absolute Auto 0.1 X10*3/uL (0.0-0.2); Basophils Percent Auto 1.4 % (0-2); Eosinophils Absolute Auto 0.3 X10*3/uL (0.0-0.4); Eosinophils Percent Auto 5.4 % (0-4); Hematocrit 48.4 % (42.0-52.0); Hemoglobin 16.5 g/dl (14.0-18.0); Imm Gran Abs Auto 0.02 X10*3/uL (0.00-0.03); Imm Gran Pct Auto 0.3 % (0.0-0.4); Lymphocytes Absolute Auto 1.8 X10*3/uL (1.2-4.9); Lymphocytes Percent Auto 30.7 % (20-40); Mean Corpuscular HGB Conc 34.1 g/dl (31.0-36.0); Mean Corpuscular Hemoglobin 31.3 pg (27.0-33.0); Mean Corpuscular Volume 91.8 fL (80.0-98.0); Mean Platelet Volume 11.7 fL (9.4-12.4); Monocytes Absolute Auto 0.5 X10*3/uL (0.1-1.2); Monocytes Percent Auto 8.8 % (2-11); Neutrophils Absolute Auto 3.1 x10*3/uL (2.0-8.3); Neutrophils Percent Auto 53.4 % (45-73); Platelet Count 243 X10*3/uL (160-400); Red Blood Count 5.27 X10*6/uL (4.60-5.80); Red Cell Distribution Width 13.2 % (11.0-16.0); White Blood Count 5.9 X10*3/uL (4.8-10.8)
[2024-05-03 16:43] LABS: Alanine Aminotransferase 41 U/L (0-40); Albumin Level 4.2 g/dL (3.5-5.0); Alkaline Phosphatase 71 U/L (39-117); Anion Gap 12 (12-20); Aspartate Amino Transferase 28 U/L (5-37); Bilirubin Total 0.3 mg/dL (0.0-1.0); Blood Urea Nitrogen 17 mg/dL (9-16); C Reactive Protein 0.33 mg/dL (< or = 0.50); Calcium 8.6 mg/dL (8.4-10.2); Carbon Dioxide 25 mmol/L (22-29); Chloride 111 mmol/L (96-108); Estimated Glomerular Filt Rate > 60; Glucose Random 86 mg/dL (60-115); Potassium 3.9 mmol/L (3.3-5.1); Sodium 144 mmol/L (135-145); Total Protein 7.3 g/dL (6.5-8.0); Uric Acid 7.5 mg/dL (3.4-7.0)
[2024-05-03 16:48] LABS: Rheumatoid Factor < 13.0 IU/mL (<15.0)
[2024-05-03 17:08] LABS: Erythrocyte Sedimentation Rate 7 MM/HR (0-15)
[2024-05-06 08:58] LABS: Complement C3 152 mg/dL (82-185)
[2024-05-06 12:39] LABS: Prot Elec - Alpha1 0.3 g/dL (0.2-0.3); Prot Elec - Alpha2 0.7 g/dL (0.5-0.9); Prot Elec - Beta 1 0.4 g/dL (0.4-0.6); Prot Elec - Beta 2 0.4 g/dL (0.2-0.5); Prot Elec - Total Protein 6.7 g/dL (6.1-8.1)
[2024-05-07 11:07] LABS: IgA 227 mg/dL (47-310); IgG 1204 mg/dL (600-1640); IgM 49 mg/dL (50-300)
[2024-05-07 15:19] LABS: Anti DNA DS Antibody <1 IU/mL; Antibody to SS-A Antigen <1.0 NEG AI (<1.0 NEG); Antibody to SS-B Antigen <1.0 NEG AI (<1.0 NEG); SM/Ribonucleoprotein Ab <1.0 NEG AI (<1.0 NEG); Scleroderma 70 Antibody <1.0 NEG AI (<1.0 NEG); Smith Protein <1.0 NEG AI (<1.0 NEG)
[2024-05-07 15:27] LABS: Anti Nuclear Antibody Screen NEGATIVE (NEGATIVE)
[2024-05-07 20:58] LABS: Anti-Centromere B Antibodies <1.0 NEG AI (<1.0 NEG)
[2024-05-07 23:54] LABS: Cyclic Citrullinated Peptide <16 UNITS
[2024-05-08 08:28] LABS: Angiotensin Converting Enzyme 17.9 U/L (9-67)
[2024-05-08 11:58] LABS: HLA B27 Negative (Negative)
[2024-05-10 15:04] LABS: Aldolase 6.4 U/L (<=8.1)
== END 2024-05-03 12:40 | disposition home or self-care (01) ==
LOC: HO.HMGCX 12:39
PROVIDERS: PCP Internal Medicine; Visit Provider Nurse Practitioner Family
DX: M79.672 Pain in left foot (principal); R20.0 Anesthesia of skin; M25.572 Pain in left ankle and joints of left foot; G89.29 Other chronic pain; M25.50 Pain in unspecified joint
CPT/HCPCS: 36415; 73130; 80053; 82085; 82164; 82550; 82784; 84165; 84550; 85025; 85652; 86038; 86140; 86160; 86200; 86225; 86235; 86334; 86431; 86812

== ENCOUNTER 2024-05-03 13:48 | Outpatient (REF) | payer BC, SELFPAY ==
--- NOTE | 2024-05-03 13:51 | EMG_ITS ---
Chief complaint: Separate complaints of bilateral hip pain radiating down to the legs; and hand numbness, mild, bothering him mostly at night. Reason for referral: Evaluate for neuropathy? Referred by: Cande Rollins NP Procedure done: Bilateral upper and lower extremities Precautions and/or limitations: Patient tends to get dizzy with needles. helped with translation. The limb temperature was monitored continuously and remained between 32-36 degrees C during the performance of the NCS. Nerve Conduction Studies Anti Sensory Summary Table ?Stim Site NR Onset (ms) Norm Onset (ms) Peak (ms) Norm Peak (ms) O-P Amp (?V) Norm O-P Amp Site1 Site2 Delta-0 (ms) Dist (cm) Hilario (m/s) Norm Hilario (m/s) Left Median Anti Sensory (2nd Digit) Wrist ? 3.3 4.1 <3.6 12.9 >10 Wrist 2nd Digit 3.3 14.0 42 Right Median Anti Sensory (2nd Digit) Wrist ? 3.2 3.8 <3.6 11.1 >10 Wrist 2nd Digit 3.2 14.0 44 Left Sural Anti Sensory (Lat Mall) Calf ? 3.0 3.6 <4.0 5.7 >5.0 Calf Lat Mall 3.0 14.0 47 Run #2 (Lat Mall) Calf ? 1.7 2.8 <4.0 9.5 >5.0 Calf Lat Mall 1.7 14.0 82 Left Ulnar Anti Sensory (5th Digit) Wrist ? 2.2 3.0 <3.7 15.4 >15.0 Wrist 5th Digit 2.2 14.0 64 Right Ulnar Anti Sensory (5th Digit) Wrist ? 2.2 2.8 <3.7 15.5 >15.0 Wrist 5th Digit 2.2 14.0 64 Motor Summary Table ?Stim Site NR Onset (ms) Norm Onset (ms) O-P Amp (mV) Norm O-P Amp iAmp (mV) Amp (1st) (%) Site1 Site2 Delta-0 (ms) Dist (cm) Hilario (m/s) Norm Hilario (m/s) Left Median Motor (Abd Poll Brev) Wrist ? 3.9 <3.9 9.7 >4.5 11.1 100.0 Elbow Wrist 3.8 23.0 61 >45 Elbow ? 7.7 9.3 10.7 95.9 Right Median Motor (Abd Poll Brev) Wrist ? 3.8 <3.9 8.2 >4.5 9.7 100.0 Elbow Wrist 3.9 23.0 59 >45 Elbow ? 7.7 7.1 8.4 86.6 Right Peroneal Motor (Ext Dig Brev) Ankle ? 3.8 <4.0 5.4 >2.5 6.0 100.0 Ankle Ext Dig Brev 3.8 0.0 B Fib ? 10.3 5.2 5.9 96.3 B Fib Ankle 6.5 34.0 52 >40 Poplt ? 11.2 6.3 7.2 116.7 Poplt B Fib 0.9 7.0 78 >40 Left Tibial Motor (Abd Devlin Brev) Ankle ? 3.2 <5 7.5 >2.5 10.0 100.0 Ankle Abd Devlin Brev 3.2 0.0 Knee ? 12.0 8.7 10.2 116.0 Knee Ankle 8.8 40.0 45 >40 Right Tibial Motor (Abd Devlin Brev) Ankle ? 3.6 <5 11.1 >2.5 14.2 100.0 Ankle Abd Devlin Brev 3.6 0.0 Knee ? 12.5 8.8 11.1 79.3 Knee Ankle 8.9 42.0 47 >40 Left Ulnar Motor (Abd Dig Minimi) Wrist ? 3.0 <3.0 7.5 >5 8.5 100.0 B Elbow Wrist 3.6 22.0 61 >45 B Elbow ? 6.6 6.3 7.4 84.0 A Elbow B Elbow 1.1 10.0 91 >45 A Elbow ? 7.7 6.1 7.3 81.3 Right Ulnar Motor (Abd Dig Minimi) Wrist ? 2.6 <3.0 9.6 >5 11.3 100.0 B Elbow Wrist 3.6 23.0 64 >45 B Elbow ? 6.2 9.3 11.2 96.9 A Elbow B Elbow 1.1 10.0 91 >45 A Elbow ? 7.3 8.9 10.9 92.7 Comparison Summary Table ?Stim Site NR Peak (ms) Norm Peak (ms) P-T Amp (?V) Site1 Site2 Delta-P (ms) Norm Delta (ms) Right Median/Radial Dig I Comparison (Digit 1 - 10cm) Median ? 3.2 <2.9 15.9 Median Radial 0.9 Radial ? 2.3 <2.8 2.0 EMG ?Side Muscle Nerve Root Ins Act Fibs Psw Amp Dur Poly Recrt Int Pat Comment Right 1stDorInt Ulnar C8-T1 Nml Nml Nml Nml Nml 0 Nml Complete Right FlexCarRad Median C6-7 Nml Nml Nml Nml Nml 0 Nml Complete Right Biceps Musculocut C5-6 Nml Nml Nml Nml Nml 0 Nml Complete Right Triceps Radial C6-7-8 Nml Nml Nml Nml Nml 0 Nml Complete Right Deltoid Axillary C5-6 Nml Nml Nml Nml Nml 0 Nml Complete Right AbdHallucis MedPlantar S1-2 Nml Nml Nml Nml Nml 0 Nml Complete Right AntTibialis Dp Br Peron L4-5 Nml Nml Nml Nml Nml 0 Nml Complete Right PostTibialis Tibial L5, S1 Nml Nml Nml Nml Nml 0 Nml Complete Right MedGastroc Tibial S1-2 Nml Nml Nml Nml Nml 0 Nml Complete Right VastusMed Femoral L2-4 Nml Nml Nml Nml Nml 0 Nml Complete Left AbdHallucis MedPlantar S1-2 Nml Nml Nml Nml Nml 0 Nml Complete Left AntTibialis Dp Br Peron L4-5 Nml Nml Nml Nml Nml 0 Nml Complete Left PostTibialis Tibial L5, S1 Nml Nml Nml Nml Nml 0 Nml Complete Left MedGastroc Tibial S1-2 Nml Nml Nml Nml Nml 0 Nml Complete Left VastusMed Femoral L2-4 Nml Nml Nml Nml Nml 0 Nml Complete FINDINGS: Bilateral median sensory nerves showed prolonged peak latency. Significant interlatency difference between right median sensory nerves. All other nerves tested were within normal. Concentric needle EMG was performed in selected muscles of the right upper extremity and bilateral lower extremities. Study did not reveal signs of electric abnormalities as shown in the table above. No myopathic looking units. IMPRESSION: 1. This is an abnormal study. 2. There is electrodiagnostic evidence for bilateral mild median neuropathy at the wrist, consistent with Carpal Tunnel Syndrome. 3. There is no electrodiagnostic evidence for ulnar neuropathy, brachial plexopathy, cervical radiculopathy, peroneal neuropathy, tibial neuropathy. lumbosacral plexopathy, lumbar radiculopathy, myopathic disorder, or peripheral neuropathy. Thank you for your kind referral. Cassy Rain MD, KIRBY Board Certified, [place] Board [employer] and Rehabilitation (ABPMR) Board Certified, [place] Board of Electrodiagnostic Medicine (ABEM) CODIN 32593 x 3 MTDD
== END 2024-05-03 13:49 | disposition home or self-care (01) ==
LOC: HO.NEURO 13:48
PROVIDERS: PCP Internal Medicine; Visit Provider Nurse Practitioner Family
DX: R20.2 Paresthesia of skin (principal); M62.81 Muscle weakness (generalized); M25.50 Pain in unspecified joint
CPT/HCPCS: 95886; 95913

== ENCOUNTER → 2024-05-03 13:51 | Outpatient (BNV) | payer BC, SELFPAY | PROVIDERS: PCP Internal Medicine; Visit Provider Physical Medicine & Rehabilitation | DX: G62.89 Other specified polyneuropathies (principal); R20.2 Paresthesia of skin | CPT/HCPCS: 95886; 95909 ==

== ENCOUNTER 2024-05-04 08:00 | Outpatient (REF) | payer BC, SELFPAY ==
[2024-05-04 11:26] LABS: Appearance Urine Clear; Color Urine Yellow; Glucose Urine UA Negative (Negative); Leukocyte Esterase Urine Negative (Negative); Nitrite Urine Negative (Negative); PH 5.5 (5.0-9.0); Urine Blood Negative (Negative); Urine Ketones Negative (Negative); Urine Protein Negative (Neg-Trace)
[2024-05-04 11:30] LABS: Bacteria Urine None Seen (None Seen); Hyaline Casts Urine 0-2 /LPF (0-2); RBC Urine 0-2 /HPF (0-2); Squamous Epithelial Cell Urine 0-2 /HPF (0-2); WBC Urine 0-5 /HPF (0-5)
== END 2024-05-04 08:01 | disposition home or self-care (01) ==
LOC: HO.HMGCLNP 08:00
PROVIDERS: Visit Provider Nurse Practitioner Family
DX: M25.50 Pain in unspecified joint (principal); M79.672 Pain in left foot; M25.579 Pain in unspecified ankle and joints of unspecified foot; G89.29 Other chronic pain
CPT/HCPCS: 81001

== ENCOUNTER 2024-05-24 10:17 | Outpatient (AMB) | payer BC, SELFPAY ==
[2024-05-24 10:22] VITALS: BP 140/90; PULSE 74; O2SAT 90; BMI 40.5
--- NOTE | 2024-05-24 10:22 | MHC.OFFVIS ---
Vital Signs 05/24/24 10:22 Height 5 ft 10.28 in Weight 284 lb 13.396 oz BMI 40.5 BP 140/90 H Blood Pressure Location Rt brachial Position Sitting Pulse 74 Pulse Source Pulse Oximeter Pulse Oximetry (%) 90 L Oxygen Delivery Method Room Air Intake Visit Reasons: Arthralgia/CM Intake Note: Patient last seen on 04/19/24 by Cande Rollins present today for follow up. Shared Services Manager Required: Yes Shared Services Manager Language: Lithuanian Shared Services Manager Services: Shared Services Manager Present Shared Services Manager Name: Gera Negro176 Information Interpreted: non-clinical & clinical Accompanied by: Spouse Allergies Milk Containing Products (Dairy) [Milk Containing Products] Adverse Reaction (Verified 05/24/24 10:28) Hives Medication List - Last Reconciled 05/24/24 by Desiree Celestin MD omeprazole 20 mg PO DAILY HPI Comments Details: Patient returns for follow-up after completion of his diagnostic workup. States that his main complaint is his left hip pain, he gets pain in the area after being up for 2 hours. Last year he took some time off work and did physical therapy which gave him relief but the pain returned when he went back to work. Initial history by Cande Blcak: Mr. Davies 54 yoM, accompanied by his who translates, on referral from his PCP, for chronic pain of many years to ankle, foot and shoulder that has worsened in the last year. his shares that he is not one who complains and is always ready to do things and get things done. However, she has noticed in the last year, that he walks like a duck and cannot do as much as before because of pain in the feet. --affect walking, sleep --advil doesn't help --aspercreme with lidocaine helps feet - top and bottom --resting his hand on table causes pain to shoot up to elbow, more frequent on the right --stiffness after sitting, takes about 15- 20 minutes to loosen up --Hip pain used to radiate down the right leg before PT- that does not radiate anymore. Before PT, he could not go into the car due to pain in left hip and back. --hard to do hard work now - used to be very active --denies dry eyes, mouth, mouth sores, rashes, chronic fevers, --denies GI and concerns. --denies photosensitivity right pip #2 sore, left 4th CMC sore. right tennis elbow --ulnar paraethesia --non-pitting swelling to LLE. --left lateral hip tenderness/ L>R PFSH Medical History Leg edema, left Osteoarthritis of midfeet, bilateral Complaint of paresthesia Muscle weakness Pain in both hands Obese GERD (gastroesophageal reflux disease) Annual physical exam Cough Surgical History Hx of colonoscopy Social History Housing: House Patient Tobacco Use Status: Former Tobacco user e-Cigarette/Vaping Use: Never Used service: No Current occupational status: employed Cognitive needs: No Hearing needs: No Vision needs: Yes Review of Systems Musc Reports arthralgias and Denies joint swelling Physical Exam Vital Signs: Last Vital Signs Pulse 74 05/24/24 10:22 BP 140/90 H 05/24/24 10:22 Pulse Ox 90 L 05/24/24 10:22 Oxygen Delivery Method Room Air 05/24/24 10:22 BMI result Body Mass Index 40.5 Const General: cooperative, healthy appearing, comfortable and no acute distress Nutritional Appearance: obese morbidly obese Orientation/consciousness: patient oriented x3 Limitations: no limitations HEENT Head: Yes normocephalic and Yes atraumatic Mouth: moist mucous membranes Resp Effort & Inspection: normal respiratory effort and able to speak in complete sentences Skin General skin exam: no rashes or lesions noted Neuro General: patient oriented x3 Extrem Other: No active synovitis right no nail pitting Normal nailfold capillaroscopy Negative Tinel sign bilaterally Proximal muscle strength 5/5 all 4 extremities Results Reviewed Results Reviewed: Laboratory Tests 10/14/23 07:08 WBC 9.0 RBC 5.21 Hgb 15.8 Hct 48.8 Creatinine 0.95 AST 23 ALT 33 XAMINATION: XR foot LT min 3V CLINICAL INFORMATION: Reason for Exam M79.672 - Pain in left foot COMPARISON: None. TECHNIQUE: AP, lateral, and oblique views of the left foot FINDINGS: * No acute fracture or dislocation. * Dorsal midfoot degenerative changes with spurring. Insertional enthesopathy. * No soft tissue abnormality. XR/XR foot LT min 3V IMPRESSION: No acute fracture or dislocation. Dorsal midfoot degenerative changes with spurring. Insertional enthesopathy. TECHNIQUE: 3 views of each ankle. FINDINGS: RIGHT ANKLE: Small dorsal and plantar calcaneal spurs. Moderate degenerative changes at the ankle. Alignment preserved. LEFT ANKLE: Small dorsal calcaneal spur. Abundant hypertrophic change at the dorsal aspect of the midfoot with possible destructive component. Dedicated views of the foot recommended for further evaluation. A 9 mm ossicle inferior to the lateral malleolus of indeterminate age and etiology. XR/XR ankle RT 2V IMPRESSION: RIGHT ANKLE: Small dorsal and plantar calcaneal spurs. LEFT ANKLE: 1. Abundant hypertrophic change at the dorsal aspect of the midfoot with possible destructive component. Dedicated views of the foot recommended for further evaluation. 2. Small dorsal calcaneal spur. 3. A 9 mm ossicle inferior to the lateral malleolus of indeterminate age and etiology. [facility] [place] [id number] XRay Report Signed Patient: Irineo Davies MR#: [id number] : 1970 Acct:[id number] Age/Sex: 53 / M ADM Date: 05/31/23 [facility] Attending Dr: Sisi Morrow MD Ordering Physician: Sisi Morrow MD Date of Service: 05/31/23 Procedure(s): XR lumbar spine 2-3V Accession Number(s): [id number] cc: Sisi Morrow MD~ STUDY: Lumbar spine, AP pelvis and bilateral hips INDICATION: Right hip pain COMPARISON: None TECHNIQUE: 3 view lumbar spine, AP pelvis, AP and frog lateral bilateral hips Lumbar spine: Lumbar lordotic straightening. 5 lumbar type vertebral bodies are identified with multilevel spurring and vertebral body height loss, most pronounced L5. Disc spaces are preserved. Pedicles are intact. Pelvis and hips: Bony pelvis is intact. No fracture, dislocation or significant joint space narrowing. SI joints within normal limits. Mild lesser trochanteric spurring on the left. Left hemipelvic phlebolith. Soft tissue density in the pelvis likely bladder. XR/XR lumbar spine 2-3V IMPRESSION: No acute bony pathology lumbar spine, pelvis and bilateral hips. Lumbar lordotic straightening, degenerative changes and multilevel mild vertebral body height losses. Left lesser trochanteric spurring. Assessment & Plan Assessment & Plan (1) Generalized osteoarthritis: Code(s): M15.9 - Polyosteoarthritis, unspecified Category: Medical Plan: This is a 54-year-old male who presents for evaluation of diffuse pain. Clinical picture consistent with generalized osteoarthritis. His comprehensive serology and inflammatory markers are normal. Follow-up with PCP (2) Bilateral carpal tunnel syndrome: Code(s): G56.03 - Carpal tunnel syndrome, bilateral upper limbs Category: Medical Plan: EMG/NCV showed mild bilateral median neuropathy, Not particularly symptomatic, not interested in wrist splints Plan I spent 20 minutes reviewing patient's chart, evaluating patient, counseling patient and documenting in the chart Coding Level of Care Code Est Pt Level 3 (42214) Diagnoses Generalized osteoarthritis M15.9 Bilateral carpal tunnel syndrome G56.03
== END 2024-05-24 11:01 | disposition home or self-care (01) ==
PROVIDERS: PCP Internal Medicine; Visit Provider Student in an Organized Health Care Education/Training Program
DX: M15.9 Polyosteoarthritis, unspecified (principal); G56.03 Carpal tunnel syndrome, bilateral upper limbs
CPT/HCPCS: 99213

== ENCOUNTER → 2024-05-24 10:17 | Outpatient (BNVA) | payer BC, SELFPAY | PROVIDERS: PCP Internal Medicine; Visit Provider Student in an Organized Health Care Education/Training Program ==

== ENCOUNTER 2024-10-28 08:46 | Outpatient (REF) | payer BC, SELFPAY ==
--- OUTSIDE RECORDS SUMMARY | 2024-10-28 08:49 | XMS_ITS ---
Author Name [facility] Organization Unknown History of Medication Use Medication Directions Dispensed Refills Start Date End Date Stat amoxicillin 875 mg-potassium clavulanate 125 mg tablet TAKE 1 TABLET BY MOUTH TWICE DAILY 07/23/2024 active omeprazole 20 mg capsule,delayed release TAKE 1 CAPSULE BY MOUTH DAILY 07/23/2024 active Nystop 100,000 unit/gram topical powder APPLY EXTERNALLY TWICE DAILY 07/23/2024 active amoxicillin 500 mg capsule TAKE 2 CAPSULES BY MOUTH NOW THEN 1 CAPSULE EVERY 8 HOURS UNTIL FINISHED 07/23/2024 active benzonatate 100 mg capsule TAKE 1 CAPSULE BY MOUTH THREE TIMES DAILY NEEDED FOR COUGH 07/23/2024 active Problems Problem Status Onset Date Problem Type Date of Resoluti on Source Osteoarthritis of right hip joint active 2024-07-19 ProblemAct ENS_AONECT 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
[2024-10-28 10:40] LABS: MANUAL DIFF FLAG NO
[2024-10-28 10:50] LABS: Basophils Absolute Auto 0.1 X10*3/uL (0.0-0.2); Basophils Percent Auto 1.2 % (0-2); Eosinophils Absolute Auto 0.3 X10*3/uL (0.0-0.4); Eosinophils Percent Auto 4.7 % (0-4); Hematocrit 50.1 % (42.0-52.0); Hemoglobin 16.5 g/dl (14.0-18.0); Imm Gran Abs Auto 0.03 X10*3/uL (0.00-0.03); Imm Gran Pct Auto 0.5 % (0.0-0.4); Lymphocytes Percent Auto 29.5 % (20-40); Mean Corpuscular HGB Conc 32.9 g/dl (31.0-36.0); Mean Corpuscular Hemoglobin 30.8 pg (27.0-33.0); Mean Corpuscular Volume 93.5 fL (80.0-98.0); Mean Platelet Volume 11.5 fL (9.4-12.4); Monocytes Absolute Auto 0.7 X10*3/uL (0.1-1.2); Monocytes Percent Auto 10.3 % (2-11); Neutrophils Absolute Auto 3.6 x10*3/uL (2.0-8.3); Neutrophils Percent Auto 53.8 % (45-73); Platelet Count 265 X10*3/uL (160-400); Red Blood Count 5.36 X10*6/uL (4.60-5.80); Red Cell Distribution Width 13.4 % (11.0-16.0); White Blood Count 6.6 X10*3/uL (4.8-10.8)
[2024-10-28 11:19] LABS: Albumin Level 4.4 g/dL (3.5-5.0); Alkaline Phosphatase 60 U/L (39-117); Anion Gap 8 (12-20); Aspartate Amino Transferase 40 U/L (5-37); Bilirubin Total 0.3 mg/dL (0.0-1.0); Blood Urea Nitrogen 21 mg/dL (9-16); Calcium 8.9 mg/dL (8.4-10.2); Carbon Dioxide 29 mmol/L (22-29); Chloride 107 mmol/L (96-108); Cholesterol 203 mg/dL (<200); Estimated Glomerular Filt Rate > 60; Glucose Fasting 97 mg/dL (60-99); HDL Cholesterol 38 mg/dL (>40); LDL Cholesterol Calculated 142 mg/dL (<100); Potassium 4.4 mmol/L (3.3-5.1); Sodium 140 mmol/L (135-145); Total Protein 7.7 g/dL (6.5-8.0); Triglycerides 116 mg/dL (<150)
[2024-10-28 11:28] LABS: PSA,Total (Free>4and<10) 0.38 ng/mL (0.00-4.00)
[2024-10-28 12:13] LABS: Alanine Aminotransferase 58 U/L (0-40)
[2024-10-28 13:52] LABS: Appearance Urine Clear; Color Urine Yellow; Glucose Urine UA Negative (Negative); Leukocyte Esterase Urine Negative (Negative); Nitrite Urine Negative (Negative); PH 5.5 (5.0-9.0); Urine Blood Negative (Negative); Urine Ketones Negative (Negative); Urine Protein Negative (Neg-Trace)
[2024-10-28 13:59] LABS: Bacteria Urine None Seen (None Seen); Hyaline Casts Urine 0-2 /LPF (0-2); RBC Urine 0-2 /HPF (0-2); Squamous Epithelial Cell Urine 0-2 /HPF (0-2); WBC Urine 0-5 /HPF (0-5)
== END 2024-10-28 08:47 | disposition home or self-care (01) ==
LOC: HO.HMGCLDS 08:46
PROVIDERS: PCP Internal Medicine; Visit Provider Internal Medicine
DX: Z00.00 Encounter for general adult medical examination without abnormal findings (principal); Z12.5 Encounter for screening for malignant neoplasm of prostate
CPT/HCPCS: 36415; 80053; 80061; 81001; 84153; 85025

== ENCOUNTER 2024-11-04 13:39 | Outpatient (AMB) | payer BC, SELFPAY ==
--- NOTE | 2024-11-04 13:45 | MHC.PC.OV ---
Vital Signs 11/04/24 13:46 Height 5 ft 10.28 in Weight 290 lb BMI 41.3 BP 128/78 Blood Pressure Location Lt brachial Position Sitting Pulse 95 Pulse Source Pulse Oximeter Pulse Oximetry (%) 98 Oxygen Delivery Method Room Air Intake Visit Reasons: PE Intake Note: Pt is here today for PE. Pt states that he checks his BP at home and his BP has been elevated. Allergies Milk Containing Products (Dairy) [Milk Containing Products] Adverse Reaction (Verified 11/04/24 14:14) Hives Medication List - Last Reconciled 11/04/24 by Sisi Morrow MD nystatin 1 appl topical BID omeprazole 20 mg PO DAILY tirzepatide (weight loss) (Zepbound) 2.5 mg (0.5 mL) subcut QWEEK Tobacco use date assessed: 11/04/24 Dental Screening Dental Screen Date: 11/04/24 Did you have a dental visit in the last 12 months?: Yes Did you have a dental problem in the last 6 months where you did not have access to dental care?: No Was dental information given to patient?: Patient has dentist HPI PE HPI Details Pt presents for PE. Pt patient has been trying to lose weight in decreasing caloric intake increasing physical activity for over 6 months unsuccessfully. Patient reports increased blood pressure at home with the readings up to 150/90. He is interested in trying GLP 1 agonist to facilitate weight loss and decrease complications of obesity including type 2 diabetes hypertension heart disease [place] and [place] [facility] Medical History (Updated 11/04/24 @ 15:29 by Sisi Morrow MD) Osteoarthritis of midfeet, bilateral Obese GERD (gastroesophageal reflux disease) Annual physical exam Surgical History Hx of colonoscopy Social History Housing: House Patient Tobacco Use Status: Former Tobacco user e-Cigarette/Vaping Use: Never Used service: No Current occupational status: employed Cognitive needs: No Hearing needs: No Vision needs: Yes Questionnaire PHQ-9 Over the last 2 weeks, how often have you been bothered by any of the following problems? 1. Little interest or pleasure in doing things: several days 2. Feeling down, depressed, or hopeless: several days 3. Trouble falling or staying asleep, or sleeping too much: more than half the days 4. Feeling tired or having little energy: several days 5. Poor appetite or overeating: several days 6. Feeling bad about yourself - or that you are a failure or have let yourself or your family down: several days 7. Trouble concentrating on things, such as reading the newspaper or watching television: several days 8. Moving or speaking so slowly that other people could have noticed. Or the opposite - being so fidgety or restless that you have been moving around a lot more than usual: not at all 9. Thoughts that you would be better off or of hurting yourself in some way: not at all Total score: 8 Depression Screening Interpretation: Negative Depression Screening Done: Yes 32824 - PHQ-9 Billing: Yes Source: Developed by Drs. Thomas Palmer, Darshana Moeller, Sage Reeder and colleagues, with an educational thomas from [employer] Thrive Questionnaire Date Thrive assessed: 10/30/24 I am a: Patient What is your living situation today?: I have a steady place to live Within the past 12 months, did the food you bought not last and you didn't have the money to get more?: Never true Within the past 12 months, did you worry whether your food would run out before you got money to buy more?: Never true Do you have trouble paying for medicines?: No Do you have trouble getting transportation to medical appointments?: No Do you have trouble paying your heating and electricity bill?: No Do you have trouble taking care of your child, family member or friend?: No Do you have trouble with day-to-day activities such as bathing, preparing meals, shopping, managing finances, etc.?: No Are you currently unemployed and looking for a job?: No Are you interested in more education?: No Please select the resources that you would like help with: None Currently or been in a relationship where the following occur: No concerns reported THRIVE Score: 0 AUDIT C Alcohol Use Questionnaire (AUDIT-C) 1. How often do you have a drink containing alcohol?: Monthly or less 2. How many drinks containing alcohol do you have on a typical day when you are drinking?: 1 or 2 3. How often do you have six or more drinks on one occasion?: Never Total Score: 1 JUAN C-7 AMB Questionnaire JUAN C-7 Date JUAN C - 7 assessed: 11/04/24 Feeling nervous, anxious, or on edge: 3 = Nearly every day Not being able to stop or control worryin = Nearly every day Worrying too much about different things: 3 = Nearly every day Trouble relaxin = Nearly every day Becoming easily annoyed or irritable: 3 = Nearly every day Feeling afraid as if something awful might happen: 3 = Nearly every day Source: Developed by Drs. Thomas Palmer, Darshana oMeller, Sage Reeder and colleagues, with an educational thomas from [employer] JUAN C-7 Assessment Billing JUAN C-7 Assessment Tool: JUAN C-7 Assessment 25487 Review of Systems Const All systems reviewed & are unremarkable except as noted in HPI and below Reports no additional complaints Eyes Reports no additional complaints ENT Reports no additional complaints Card Reports no additional complaints Resp Reports no additional complaints GI Reports no additional complaints Reports no additional complaints Musc Reports no additional complaints Physical exam (Primary Care) Vital Signs: Last Vital Signs Pulse 95 11/04/24 13:46 BP 128/78 11/04/24 13:46 Pulse Ox 98 11/04/24 13:46 Oxygen Delivery Method Room Air 11/04/24 13:46 BMI result Body Mass Index 41.3 Tobacco/Smoking Status: Tobacco use Status Tobacco use date assessed 11/04/24 11/04/24 14:18 Patient Tobacco Use Status Former Tobacco user 11/04/24 13:46 e-Cigarette/Vaping Use Never Used 11/04/24 13:46 PHQ-9: PHQ-9 Score PHQ-9: Total score 8 11/04/24 14:18 Depression Screening Interpretation: Negative Thrive Assessment: Date of Thrive Assessment Date Thrive assessed 10/30/24 11/04/24 13:46 Currently or been in a relationship where the following occur: No concerns reported Const General: no acute distress HENMT Head: Yes normal to inspection Ears: hearing grossly normal bilaterally Face and sinus: Yes normal facial exam Mouth: Normal oral and palatal mucosa present Throat: Yes posterior oropharynx normal Eyes General: appearance normal, both eyes and all related structures Neck Neck: Yes supple Resp Effort & Inspection: normal respiratory effort Auscultation: clear to auscultation bilaterally Cardio Rhythm: regular rhythm Heart sounds: S1 normal heart sound present and S2 normal heart sound present GI Inspection: Yes normal to inspection Palpation (GI): Soft to palpation Percussion: Yes normal to percussion Auscultation: normal bowel sounds Coding Level of Care Code Est Pt Prev Care 40-64y(79932) Diagnoses Obese E66.9 Annual physical exam Z00.00 HTN (hypertension) I10 Additional Codes JUAN C-7 Assessment Billing - JUAN C-7 Assessment Tool: JUAN C-7 Assessment [id number] ([id number]) PHQ-9 - 67812 - PHQ-9 Billing: Yes ([id number]) Assessment & Plan Assessment & Plan (1) Obese: Comment: BMI 41.3 10/2024, start Zepbound Code(s): E66.9 - Obesity, unspecified Category: Medical Plan: Decreasing caloric intake increasing physical activity discussed with the patient. He will start Zepbound 2.5 mg for the 1st month, side effects discussed with the patient. He will follow-up in 1 month (2) Annual physical exam: Code(s): Z00.00 - Encounter for general adult medical examination without abnormal findings Category: Medical Plan: WELL-BALANCED DIET REGULAR PHYSICAL ACTIVITY WEIGHT LOSS DISCUSSED WITH THE PATIENT. (3) HTN (hypertension): Code(s): I10 - Essential (primary) hypertension Category: Medical Plan: Start 10 mg of lisinopril, low-sodium diet increase exercise weight loss discussed with the patient follow-up in 1 month Medications: New tirzepatide (weight loss) (Zepbound) for 4 weeks 2.5 mg (0.5 mL) subcut QWEEK 2 mL 0RF lisinopril 10 mg PO DAILY 30 tabs 1RF
[2024-11-04 13:46] VITALS: BP 128/78; PULSE 95; O2SAT 98; BMI 41.3
== END 2024-11-04 15:30 | disposition home or self-care (01) ==
PROVIDERS: PCP Internal Medicine; Visit Provider Internal Medicine
DX: Z00.00 Encounter for general adult medical examination without abnormal findings (principal); E66.9 Obesity, unspecified; I10 Essential (primary) hypertension; Z68.41 Body mass index [BMI] 40.0-44.9, adult

== ENCOUNTER → 2024-11-04 13:39 | Outpatient (BNVA) | payer BC, SELFPAY | PROVIDERS: PCP Internal Medicine; Visit Provider Internal Medicine | DX: Z00.00 Encounter for general adult medical examination without abnormal findings (principal); I10 Essential (primary) hypertension; E66.9 Obesity, unspecified; Z68.41 Body mass index [BMI] 40.0-44.9, adult | CPT/HCPCS: 96127 ==

== ENCOUNTER → 2024-12-05 14:04 | Outpatient (BNVA) | payer BC, SELFPAY | PROVIDERS: PCP Internal Medicine; Visit Provider Internal Medicine | DX: I10 Essential (primary) hypertension (principal); E66.9 Obesity, unspecified; Z68.41 Body mass index [BMI] 40.0-44.9, adult; Z79.899 Other long term (current) drug therapy | CPT/HCPCS: 96127 ==

== ENCOUNTER 2025-01-25 09:04 | Outpatient (REF) | payer BC, SELFPAY ==
[2025-01-25 12:35] LABS: Alanine Aminotransferase 41 U/L (0-40); Albumin Level 4.2 g/dL (3.5-5.0); Alkaline Phosphatase 71 U/L (39-117); Anion Gap 12 (12-20); Aspartate Amino Transferase 27 U/L (5-37); Bilirubin Total 0.4 mg/dL (0.0-1.0); Blood Urea Nitrogen 17 mg/dL (9-16); Calcium 8.8 mg/dL (8.4-10.2); Carbon Dioxide 24 mmol/L (22-29); Chloride 108 mmol/L (96-108); Cholesterol 179 mg/dL (<200); Estimated Glomerular Filt Rate > 60; Glucose Fasting 87 mg/dL (60-99); HDL Cholesterol 27 mg/dL (>40); LDL Cholesterol Calculated 135 mg/dL (<100); Potassium 4.6 mmol/L (3.3-5.1); Sodium 139 mmol/L (135-145); Total Protein 7.8 g/dL (6.5-8.0); Triglycerides 85 mg/dL (<150)
== END 2025-01-25 09:05 | disposition home or self-care (01) ==
LOC: HO.HMGCLDS 09:04
PROVIDERS: PCP Internal Medicine; Visit Provider Internal Medicine
DX: I10 Essential (primary) hypertension (principal); E78.5 Hyperlipidemia, unspecified
CPT/HCPCS: 36415; 80053; 80061

== ENCOUNTER 2025-02-03 14:08 | Outpatient (AMB) | payer BC, SELFPAY ==
--- NOTE | 2025-02-03 14:32 | A.OFFPC_ITS ---
Vital Signs 02/03/25 14:58 Height 5 ft 10.28 in Weight 279 lb BMI 39.7 BP 136/74 Blood Pressure Location Lt brachial Position Sitting Respiration 20 Pulse 84 Pulse Source Pulse Oximeter Pulse Oximetry (%) 97 Oxygen Delivery Method Room Air Intake Visit Reasons: 2m follow up Intake Note: Pt is here today for 2 months follow up visit. Allergies Milk Containing Products (Dairy) [Milk Containing Products] Adverse Reaction (Verified 02/03/25 14:41) Hives Medication List - Last Reconciled 02/03/25 by Sisi Morrow MD lisinopril 10 mg PO BID nystatin 1 appl topical BID omeprazole 20 mg PO DAILY Tobacco use date assessed: 02/03/25 Dental Screening Dental Screen Date: 12/05/24 HPI 2m follow up HPI Details Patient presents for the follow-up of hypertension and chronic GERD. [facility] Medical History (Updated 12/05/24 @ 14:53 by Sisi Morrow MD) Osteoarthritis of midfeet, bilateral Obese GERD (gastroesophageal reflux disease) Annual physical exam Surgical History Hx of colonoscopy Social History Housing: House Patient Tobacco Use Status: Former Tobacco user e-Cigarette/Vaping Use: Never Used service: No Current occupational status: employed Cognitive needs: No Hearing needs: No Vision needs: Yes Questionnaire PHQ-9 Over the last 2 weeks, how often have you been bothered by any of the following problems? 1. Little interest or pleasure in doing things: several days 2. Feeling down, depressed, or hopeless: more than half the days 3. Trouble falling or staying asleep, or sleeping too much: more than half the days 4. Feeling tired or having little energy: more than half the days 5. Poor appetite or overeating: several days 6. Feeling bad about yourself - or that you are a failure or have let yourself or your family down: several days 7. Trouble concentrating on things, such as reading the newspaper or watching television: several days 8. Moving or speaking so slowly that other people could have noticed. Or the opposite - being so fidgety or restless that you have been moving around a lot more than usual: not at all 9. Thoughts that you would be better off or of hurting yourself in some way: several days Total score: 11 Depression Screening Interpretation: Negative Depression Screening Done: Yes 19028 - PHQ-9 Billing: Yes Source: Developed by Drs. Thomas Palmer, Sage Ghosh and colleagues, with an educational thomas from [employer]. Thrive Questionnaire Date Thrive assessed: 12/01/24 I am a: Patient What is your living situation today?: I have a steady place to live Within the past 12 months, did the food you bought not last and you didn't have the money to get more?: Never true Within the past 12 months, did you worry whether your food would run out before you got money to buy more?: Never true Do you have trouble paying for medicines?: No Do you have trouble getting transportation to medical appointments?: No Do you have trouble paying your heating and electricity bill?: No Do you have trouble taking care of your child, family member or friend?: No Do you have trouble with day-to-day activities such as bathing, preparing meals, shopping, managing finances, etc.?: No Are you currently unemployed and looking for a job?: No Are you interested in more education?: No Please select the resources that you would like help with: None Currently or been in a relationship where the following occur: No concerns reported THRIVE Score: 0 JUAN C-7 AMB Questionnaire JUAN C-7 Date JUAN C - 7 assessed: 12/05/24 Source: Developed by Drs. Thomas Palmer, Sage Ghosh and colleagues, with an educational thomas from [employer]. Review of Systems Const All systems reviewed & are unremarkable except as noted in HPI and below Eyes Reports no additional complaints ENT Reports no additional complaints Card Reports no additional complaints Resp Reports no additional complaints GI Reports no additional complaints Reports no additional complaints Physical exam (Primary Care) Vital Signs: Last Vital Signs Pulse 84 02/03/25 14:58 Resp 20 02/03/25 14:58 BP 136/74 02/03/25 14:58 Pulse Ox 97 02/03/25 14:58 Oxygen Delivery Method Room Air 02/03/25 14:58 BMI result Body Mass Index 39.7 Tobacco/Smoking Status: Tobacco use Status Tobacco use date assessed 02/03/25 02/03/25 14:32 Patient Tobacco Use Status Former Tobacco user 02/03/25 14:32 e-Cigarette/Vaping Use Never Used 02/03/25 14:32 PHQ-9: PHQ-9 Score PHQ-9: Total score 11 02/03/25 14:32 Depression Screening Interpretation: Negative Thrive Assessment: Date of Thrive Assessment Date Thrive assessed 12/01/24 02/03/25 14:32 Currently or been in a relationship where the following occur: No concerns reported Const General: no acute distress HENMT Head: Yes normal to inspection Face and sinus: Yes normal facial exam Eyes General: appearance normal, both eyes and all related structures Resp Effort & Inspection: normal respiratory effort Auscultation: clear to auscultation bilaterally Cardio Rhythm: regular rhythm Heart sounds: S1 normal heart sound present and S2 normal heart sound present Coding Level of Care Code Est Pt Level 4 (49284) Diagnoses Hyperlipidemia E78.5 HTN (hypertension) I10 Additional Codes PHQ-9 - 51077 - PHQ-9 Billing: Yes ([id number]) Assessment & Plan Assessment & Plan (1) Hyperlipidemia: Code(s): E78.5 - Hyperlipidemia, unspecified Category: Medical Plan: Continue low-cholesterol diet start fish oil supplement and increase physical activity to improve HDL cholesterol (2) HTN (hypertension): Code(s): I10 - Essential (primary) hypertension Category: Medical Plan: Increase lisinopril to twice a day continue low-sodium diet increase exercise weight loss discussed with the patient follow-up in 3 months with a fasting labs before Orders: Orders Comprehensive Ward. Panel Fast 3 Months E78.5 - Hyperlipidemia, unspecified, I10 - Essential (primary) hypertension Lipid Panel 3 Months E78.5 - Hyperlipidemia, unspecified, I10 - Essential (primary) hypertension Medications: Changed From lisinopril 10 mg PO DAILY 90 tabs 3RF To lisinopril 10 mg PO BID 180 tabs 3RF
[2025-02-03 14:58] VITALS: BP 136/74; PULSE 84; RESP 20; O2SAT 97; BMI 39.7
--- OUTSIDE RECORDS SUMMARY | 2025-02-03 15:59 | XMS_ITS ---
Author Organization [facility] Address [address] [place] [place] [address] Care Team Providers Care Production Assembly Supervisor Name Role Phone Sisi Morrow MD Primary Care Provider Travis Sarabia [phone] REASON FOR VISIT Night Splint Encounters Encounter Location Date Provider Diagnosis [facility] [address] [place] [address] 04/04/2024 Travis Hadley Plan Of Treatment No Information Progress Notes * Irineo BROWNDOB:[birth year] (54 yo M)Acc No.[id number]:04/04/2024 Patient:?Elda Brown :1970???Age:54 Y???Sex:Male Address:[place], [address] * true * Date:? Generated for Tera craft/Nora/eTransmitting on:?02/03/2025 03:59 PM EDT
--- OUTSIDE RECORDS SUMMARY | 2025-02-03 15:59 | XMS_ITS | Patient Health Record ---
[facility] [place] Address [address] [facility] [place] [address] Care Team Providers Care Cable Supervisor Name Role Phone Sisi Morrow MD Primary Care Provider Travis Sarabia Unavailable [phone] Allergies Allergen (clinical drug ingredient) Drug/Non Drug Allergy documented on EMR Reaction Allergy Type Onset Date Status Milk-related Compounds hives Drug Allergy Active Reason For Referral No Information Medications Medication SIG (Take, Route, Frequency, Duration) Notes Start Date End Date Status Night Splint AFO - L1930 as directed 04/04/2024 Active Omeprazole 20 MG 1 capsule 30 minutes before morning meal Orally Once a day Active Night Splint AFO - L1930 as directed 02/12/2024 Active Physical Therapy . . . 2-3x/week for 3-4 weeks 06/2024 Active Custom Orthotics as directed 02/12/2024 Active Social History Tobacco Use: Social History Observation Description Date Details (start date - stop date) Former Smoker NA - NA Tobacco Use/Smoking Question Answer Notes Are you a: former smoker Additional Findings: Tobacco Non-User Current no n-smoker Alcohol Screen Question Answer Notes Did you have a drink containing alcohol in the p ast year? No Points 0 Interpretation Negative Tobacco use other than smoking: Question Answer Notes Are you an other tobacco user? No Problems Problem Type SNOMED Code ICD Code Onset Dates Problem Status W/U Status Risk Notes Problem 5641840790282083 Arthritis of right foot (M19.071) Active confirmed Problem 2058588243265188 Arthritis of left foot (M19.072) Active confirmed Vital Signs Height 6 ft 0 in in 04/04/2024 Weight 278 lbs 04/04/2024 BMI 37.70 kg/m2 04/04/2024 Encounters Encounter Location Date Provider Diagnosis [address] [address] 02/12/2024 Travis Hadley Plantar fascial 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 ; Pain in left foot M79.672 ; Pain in right foot M79.671 ; Arthritis of left foot M19.072 and Arthritis of right foot M19.[address] [address] 04/04/2024 Travis Hdaley Plantar fascial 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 ; Pain in left foot M79.672 ; Pain in right foot M79.671 ; Arthritis of left foot M19.072 ; Arthritis of right foot M19.071 and Metatarsalgia, right foot M77.[address] [address] 02/12/2024 Travis Hadley [address] [address] 02/12/2024 Travis Hadley [address] [address] 04/04/2024 Travis Hadley Assessments Encounter Date Diagnosis (ICD Code) Assessment Notes Treatment Notes Treatment Clinical Notes Section Notes 02/12/2024 Pain in left foot (ICD-10 - M79.672) 02/12/2024 Plantar fascial fibromatosis (ICD-10 - M72.2) Patient Educated with: HEEL CORD STRETCHES.pdf (HEEL CORD STRETCHES.pdf) Patient Educated with: RICE THERAPY.pdf (RICE THERAPY.pdf) Patient Educated with: INJECTIONTHERAPY .pdf (INJECTIONTHERAP Y.pdf) Patient Educated with: INSTRUCTIONS FOR PROPER USE OF ORTHOTICS.pdf (INSTRUCTIONS FOR PROPER USE OF ORTHOTICS.pdf) 04/04/2024 Pain in left foot (ICD-10 - M79.672) 04/04/2024 Plantar fascial fibromatosis (ICD-10 - M72.2) 02/12/2024 Pain in right foot (ICD-10 - M79.671) 04/04/2024 Pain in right foot (ICD-10 - M79.671) 04/04/2024 Arthritis of left foot (ICD-10 - M19.072) 02/12/2024 Arthritis of left foot (ICD-10 - M19.072) 02/12/2024 Arthritis of right foot (ICD-10 - M19.071) 04/04/2024 Arthritis of right foot (ICD-10 - M19.071) 04/04/2024 Metatarsalgia, right foot (ICD-10 - M77.41) Plan Of Treatment Pending Test Test Name Order Date X ray : Foot, right 3V 04/04/2024 Insurance Providers Payer Name Payer Address Payer Phone Subscriber Number Group Number Insured Name Patient Relationship to Insured Coverage Start Date Coverage End Date [facility] [address] [place] [address] [phone] [id number] Irineo Jenkins Self - patient is the insured Medical (General) History Medical History History ICD Code Obesity Reflux ( GERD) cough Surgical History Surgery Date(Month/Year) colonoscopy
--- OUTSIDE RECORDS SUMMARY | 2025-02-03 16:00 | XMS_ITS ---
Author Organization [facility] Address [address] [place] [address] Care Team Providers Care Mask Layout Designer Name Role Phone Sisi Morrow MD Primary Care Provider Travis Sarabia [phone] Allergies Allergen (clinical drug ingredient) Drug/Non Drug Allergy documented on EMR Reaction Allergy Type Onset Date Status Milk-related Compounds hives Drug Allergy Active REASON FOR VISIT Seen sooner Medications Medication SIG (Take, Route, Fr equency, Duration) Notes Start Date End Date Status Omeprazole 20 MG 1 capsule 30 minutes before morning meal Orally Once a day Active Social History Tobacco Use: Social History [...] Are you an other tobacco user? No Vital Signs Height 6ft in 03/20/2024 Weight 278 lbs 03/20/2024 BMI 37.7 kg/m2 03/20/2024 Encounters Encounter Location Date Provider Diagnosis [facility] [address] [place] [address] 03/20/2024 Travis Hadley Plan Of Treatment No Information Progress Notes * Irineo BROWNDOB:[birth year] (54 yo M)Acc No.[id number]:03/20/2024 Progress Notes Patient:?Elda BROWN Provider:?Travis Hadley DPM :1970???Age:53 Y???Sex:Male Ran e:03/20/2024 Address:[address] Pcp:Sisi Morrow MD Subjective: * Chief Complaints: * ???1. Seen sooner. * ROS:?General/Constitutional:?Nausea?denies.?Vomiting?denies.?Hunger Thirst?denies.?Loss appetite?denies.?Chills?denies.?Fatigue?denies.?Fever?denies.?Night Sweats?denies.?Unexplained weight loss?denies.?Unexplained weight gain?denies.?HEENTM:?Dentures?denies.?Dizziness?denies.?Glasses/contacts?admits.?Retinopathy?de nies.?Blurred/double vision?denies.?TMJ?denies.?Discharge/drainage?denies.?Implants?denies.?Sore throat?denies.?Dental implants?denies.?Hard of hearing ?denies.?Difficulty chewing/swallowing/speaking?denies.?Nose bleeds?denies.?Sore mouth?denies.?Respiratory:?On Oxygen?denies.?Pneumonia/pleurisy?denies.?Bronchitis?denies.?Emphysema?denies.?C oughing?denies.?Cough blood?denies.?Shortness of breath?denies.?Wheezing?denies.?Cardiovascular:?Pacemaker?denies.?MVP?denies.?WPW?denies.?CHF?denies.?Heart attack?denies.?Septal defect?denies.?Rapid beat?denies.?Chest pain ?denies.?Atrial Fib.?denies.?Murmur/Palpitations?denies.?Gastrointestinal:?Hemorrhoids?denies.?Stomach/Abdominal pain?denies.?Dark blood stool?denies.?Irritable bowel ?denies.?Constipation?denies.?Diarrhea?denies.?Hematology:?Swelling?denies.?Clots?denies.?Varicose Veins?denies.?Bruising?denies.?Bleeding problem?denies.?Genitourinary:?Blood urine?denies.?Frequent/Painfu/urination/bladder control?denies.?Kidney stones?denies.?Infection (UTI)?denies.?Nephropathy?denies.?sex trans dis (STD)?denies.?Prostate?denies.?Musculoskeletal:?Hammertoes?denies.?Bunions?denies.?Back Pain?admits.?Muscle Cramps/ Resting?admits.?Muscle cramps / walking?admits.?Generalized aches and pains?admits.?Weakness?denies.?Integ.:?Alejandro?denies.?Scars?denies.?Corns/calluses?denies.?Ingrown nails?denies.?Painful nails?denies.?Open Sores?denies.?Rashes?admits.?Neurologic:?Difficulty sleeping?denies.?Brain disorder?denies.?Numbness?admits.?Balance trouble?denies.?Confusion?denies.?Fainting/blackouts?denies.?Tingling?admits.?Tr emors?denies.? * Medical History:?Obesity, Re flux ( GERD), Cough. * Surgical History:?colonoscop y . * Family History:?Mother: dece ased, diagnosed with Unspecified essential hypertension.?Father: .?Maternal Grand Father: stroke.?Paternal Grand Mother: diagnosed with Diabetic - NIDDM.? * Social History:?Tobacco Use:?Tobacco Use/Smoking?Are you a:?former smoker ?Additional Findings: Tobacco Non-User?Current non-smoker ?Tobacco use other than smoking?Are you an other tobacco user??No ???Drugs/Alcohol:?Drugs?Have you used drugs other than those for medical reasons in the past 12 months??No ?Alcohol Screen?Did you have a drink containing alcohol in the past year??No ?Points?0 ?Interpretation?Negative ???Miscellaneous:?Caffeine: yes. ?Children: yes, 1. ?Exercise: yes, walking. ?Marital status: . ?Occupation: Final Assembly Worker. * Medications:?Taking Omeprazo le 20 MG Capsule Delayed Release 1 capsule 30 minutes before morning meal Orally Once a day * Allergies:?Milk-related Comp ounds: hives. Objective: * Vitals:?Ht: 6ft, Wt:278, BMI :37.7, Ht-cm: 182.88 cm, Wt-k.1 kg. Assessment: Plan: * Treatment: * Images: * The named appointment provid er may or may not be the originator of this progress note, and it is not deemed complete until electronically signed by the appointment provider. Sign off status: Pending * Provider:?Travis Hadley DPM Date:? 024 Generated for Tera craft/Nora/Kalyn on:?02/03/2025 03:59 PM EDT
--- OUTSIDE RECORDS SUMMARY | 2025-02-03 16:00 | XMS_ITS ---
Author Organization [facility] Address [address] [place] [address] Care Team Providers Care Taxi Driver Name Role Phone Sisi Morrow MD Primary Care Provider Travis Sarabia Unavailable [phone] Allergies Allergen (clinical drug ingredient) Drug/Non Drug Allergy documented on EMR Reaction Allergy Type Onset Date Status Milk-related Compounds hives Drug Allergy Active REASON FOR VISIT Last PCP Visit: 10/2023 Medications Medication SIG (Take, Route, Frequency, Duration) [...] other tobacco user? No Vital Signs Height 6 ft 0 in in 04/04/2024 Weight 278 lbs 04/04/2024 BMI 37.70 kg/m2 04/04/2024 Encounters Encounter Location Date Provider Diagnosis [facility] [address] [place] [address] 04/04/2024 Travis Hadley Plantar fascial 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 ; Pain in left foot M79.672 ; Pain in right foot M79.671 ; Arthritis of left foot M19.072 ; Arthritis of right foot M19.071 and Metatarsalgia, right foot M77.41 Assessments Encounter Date Diagnosis (ICD Code) Assessment Notes Treatment Notes Treatment Clinical Notes Section Notes 04/04/2024 Plantar fascial fibromatosis (ICD-10 - M72.2) 04/04/2024 Pain in left foot (ICD-10 - M79.672) 04/04/2024 Pain in right foot (ICD-10 - M79.671) 04/04/2024 Arthritis of left foot (ICD-10 - M19.072) 04/04/2024 Arthritis of right foot (ICD-10 - M19.071) 04/04/2024 Metatarsalgia, right foot (ICD-10 - M77.41) Plan Of Treatment Medication Medication Name Sig Start Date Stop Date Notes Night Splint AFO - L1930 as directed 04/04/2024 Pending Test Test Name Order Date X ray : Foot, right 3V 04/04/2024 Next Appt Details Follow Up: prn, Reason: Progress Notes * Suraj BROWNirDOB:[birth year] (54 yo M)Acc No.[id number]:04/04/2024 Progress Notes Patient:?Israelandrea Elda perez Provider:?Travis Hadley DPM :1970???Age:54 Y???Sex:Male Ran e:04/04/2024 Address:[address] [place], [place] [id number] Pcp:Sisi Morrow MD Subjective: * Chief Complaints: * ??? Last PCP Visit: 10/2023 * HPI: ???Foot Pain:?Nature:?dull, aching.?Location?Top, Midfoot, B/L, R>L.?Duration:?several years.?Onset/Cause:?overuse--working on concrete floors in steel toe shoes 50plus hrs/wk.?Course:?improved, at _50__ %.?Aggrevated:?work.?Treatments:?innersoles--cmft plus.?Quality/Severity?5, scale 1-10.? spouse is present and acts as int. ???Toe pain:?Nature:?sharp.?Location:?5th toe, Right foot, Outside.?Duration:?a week.?Onset/Cause:?states traumatic ( sprained foot getting out of bed ).?Course:?worse.?Aggrevated by:?any pressure, shoes.?Treatments:?none.? * ROS:?General/Constitutional:?Nausea?denies.?Vomiting?denies.?Hunger Thirst?denies.?Loss appetite?denies.?Chills?denies.?Fatigue?denies.?Fever?denies.?Night Sweats?denies.?Unexplained weight loss?denies.?Unexplained weight gain?denies.?HEENTM:?Dentures?denies.?Dizziness?denies.?Glasses/contacts?admits.?Retinopathy?de nies.?Blurred/double vision?denies.?TMJ?denies.?Discharge/drainage?denies.?Implants?denies.?Sore throat?denies.?Dental implants?denies.?Hard of hearing ?denies.?Difficulty chewing/swallowing/speaking?denies.?Nose bleeds?denies.?Sore mouth?denies.?Respiratory:?On Oxygen?denies.?Pneumonia/pleurisy?denies.?Bronchitis?denies.?Emphysema?denies.?C oughing?denies.?Cough blood?denies.?Shortness of breath?denies.?Wheezing?denies.?Cardiovascular:?Pacemaker?denies.?MVP?denies.?WPW?denies.?CHF?denies.?Heart attack?denies.?Septal defect?denies.?Rapid beat?denies.?Chest pain ?denies.?Atrial Fib.?denies.?Murmur/Palpitations?denies.?Gastrointestinal:?Hemorrhoids?denies.?Stomach/Abdominal pain?denies.?Dark blood stool?denies.?Irritable bowel ?denies.?Constipation?denies.?Diarrhea?denies.?Hematology:?Swelling?denies.?Clots?denies.?Varicose Veins?denies.?Bruising?denies.?Bleeding problem?denies.?Genitourinary:?Blood urine?denies.?Frequent/Painfu/urination/bladder control?denies.?Kidney stones?denies.?Infection (UTI)?denies.?Nephropathy?denies.?sex trans dis (STD)?denies.?Prostate?denies.?Musculoskeletal:?Hammertoes?denies.?Bunions?denies.?Back Pain?admits.?Muscle Cramps/ Resting?admits.?Muscle cramps / walking?admits.?Generalized aches and pains?admits.?Weakness?denies.?Integ.:?Alejandro?denies.?Scars?denies.?Corns/calluses?denies.?Ingrown nails?denies.?Painful nails?denies.?Open Sores?denies.?Rashes?admits.?Neurologic:?Difficulty sleeping?denies.?Brain disorder?denies.?Numbness?admits.?Balance trouble?denies.?Confusion?denies.?Fainting/blackouts?denies.?Tingling?admits.?Tr emors?denies.? * Medical History:? * Surgical History:?colonoscop y * Hospitalization/Major Diagno stic Procedure:?Denies Past Hospitalization * Family History:?Mother: dece ased, diagnosed with [...] ?Exercise: yes, walking. ?Marital status: . ?Occupation: [employer] Helper. * Medications:?TakingOmeprazol e 20 MG Capsule Delayed Release 1 capsule 30 minutes before morning meal Orally Once a dayNight Splint AFO - L1930 as directed Physical Therapy . . . . 2-3x/weekCustom Orthotics as directed Medication List reviewed and reconciled with the patientTaking Omeprazole 20 MG Capsule Delayed Release 1 capsule 30 minutes before morning meal Orally Once a dayTaking Night Splint AFO - L1930 as directed Taking Physical Therapy . . . . 2-3x/weekTaking Custom Orthotics as directed Medication List reviewed and reconciled with the patient * Allergies:?Milk-related Comp ounds: hivesyes[Allergies Verified] Objective: * Vitals:?Ht: 6 ft 0 in, Wt:27 8, BMI:37.70. * Examination: ???General Examination: ?GENERAL APPEARANCE:?pleasant, alert, well nourished, well developed, well hydrated, with good attention to hygene/body habitus, and in no acute distress.?ORIENTED:?person,place, and time.?Neurological: ?SENSORY:?Neurological exam is normal, pain sensation normal, vibration sensation intact, pinprick sensation is normal in the lower extremities, denies, tingling, burning, anesthesia, paresthesia, hyperesthesia, B/L, Neurological exam demonstrates sharp pop dorsum and lateral right 5th mtpj; sharp pop plm rt heel and less pop of pf midsection boo .?TINEL'S COMPRESSION:?Negative tarsal tunnel, stephie pedis, and medial calcaneal nerves B/L.?BABINSKI REFLEX:?absent.?Neuroma Pain: ?PALPATION:?No interspace pain noted on palpation.?Vascular: ?DP PULSES:?2/4, B/L.?PT PULSES:?2/4, B/L.?CAPILLARY FILL TIME:?3 secs. per digit, B/L.?SKIN TEMPERTURE GRADIENT OF THE LOWER EXTERMITIES:?warm to cool, proximal to distal, B/L.?HAIR GROWTH/TEXTURE/ELASTICITY/TURGOR:?normal, B/L.?PIGMENTATION:?normal, B/L.?EDEMA:?no edema.?TELANGECTASIA:?absent.?VARICOSITIES:?absent.?Dermatologic: ?SKIN FINDINGS:?Skin exam reveals normal texture, elasticity, and tugor. There are no masses. The interspaces are clear, B/L .?Orthopedic: ?MUSCLE STRENGTH:?5/5 all groups in a symmetrical fashion , B/L.?GAIT ABNORMALITY:?pronated, abducted, B/L.?X-Rays - IMAGING REPORT: ?Clinical Indication(s):? Evaluate for Fracture, Evaluate Biomechanical Deformity.?Views:? 3 views of Foot, RIGHT.?Findings:? positive infra-calcaneal exostosis, hypertrophy 5th MTH.?Foot structure:? reveals excess pronation with, anterior break in cyme line.?Fracture:? Negative fractures identified.? * Physical Examination:?L1930 Nightsplint AFO:?Application of static AFO, including soft interface material, adjustable for fit/ positioning/ pressure reduction, may be used for minimal ambulation, prefabricated, including fitting and adjustment:?Large, Right.? Assessment: * Assessment: 1.?Pain in left foot - M79.6 72?2.?Plantar fascial fibromatosis - M72.2 (Primary)?3.?Pain in right foot - M79.671?4.?Arthritis of left foot - M19.072?5.?Arthritis of right foot - M19.071?6.?Metatarsalgia, right foot - M77.41? Plan: * Treatment: 2.?Pain in right foot?Imaging: X ray : Foot, right 3V * Procedure Codes:?59699 X-RAY EXAM OF RIGHT FOOT 3V, Modifiers: 26 , [id number] AFO PLASTIC/OTH MATERIAL PREFAB * Preventive Medicine:? ??Counseling:?Discussion:?-14: Office or other outpatient visit for the evaluation and management of an established patient, which required a medically appropriate history and/or examination and MODERATE level of DECISION MAKING for: 1 OR MORE CHRONIC PROBLEM(S) THATS WORSENING, 2 STABLE CHRONIC PROBLEMS, A NEWLY DIAGNOSED PROBLEM WITH UNCERTAIN PROGNOSIS, AN ACUTE COMPLICATED INJURY WITH MULTIPLE TREATMENT OPTIONS, OR AN ACUTE PROBLEM WITH ACCOMPANYING SYSTEMIC SYMPTOMS, THAT POSE(S) A MODERATE RISK OF MORBIDITY. THIS CONDITION MAY ALSO INCLUDE RX DRUG MANAGEMENT, OR A DECISON FOR MINOR SURGERY. The visit on the day of the encounter encompassed interpreting the data and educating the patient as to the nature of their condition, treatment options available according to their individual PMH, meds, allergies, and overall health/living conditions, as well as any potential risks or complications that may occur from a failure to adhere to, and participate in, the recommended course of therapy. The discussion included a complete verbal, and/or written explanation of the examination results, any x-rays taken, the proposed diagnosis, and outline of the treatment plan. A schedule for future care needs was also explained. The patient verbalized an understanding of the instructions at this time and agreed to be an active participant in their treatment. If the patient should think of any questions or concerns after the visit, I have encouraged the patient to call the office.?Orthotic Dispensing:?The patient presents today for fitting and dispensing of orthotics. The inserts were checked against the prescription and found to be accurate. They were properly fitted to the patients feet and shoes in both weight-bearing and non-weight bearing attitudes. The patient was instructed to gradually increase the amount of time they are wearing the orthoses, starting with one hour the first day and thereon progressively increasing the amount of time used by one hours per day until they are comfortable to be worn all day and with all activities. They were asked to call the office if any signs of skin irritation were noted including redness, blistering or callous formation. The patient verbally indicated a full understanding of all the above information, Handout reviewed and dispensed, The patient signed confirmation form indicating receipt of DME device.?P.R.I.C.E.:?The patient was counseled on the use of P.R.I.C.E. and NSAIDS (if well tolerated) to aid in the recovery from their painful condition, Topical pain control compound combination therapy was discussed and prescribed.? * Follow Up:?prn * Images: * Sign off status: Completed true * Provider:?Travis Hadley DPM Date:? 024 Generated for Tera craft/Nora/Kalyn on:?02/03/2025 03:59 PM EDT History and Physical Notes * HPI (History of Present Illness) Category Sub-Category Detail Notes Category Not es Toe pain Nature: sharp Location: 5th toe, Right foot, Outside Duration: a week Onset/Cause: states traumatic ( s prained foot getting out of bed ) Course: worse Aggravated by: any pressure, shoes Treatments: none Foot Pain Aggrevated: work spouse is prese nt and acts as int Onset/Cause: overuse--working on concrete floors in steel toe shoes 50plus hrs/wk Course: improved, at _50__ % Duration: several years Nature: dull, aching Treatments: innersoles--cmft plu s Quality/Severity 5, scale 1-10 Location Top, Midfoot, B/L, R >L Physical Examination Category Sub-Category Detail Notes Section Note s L1930 Nightsplint AFO Application of sta tic AFO, including soft interface material, adjustable for fit/ positioning/ pressure reduction, may be used for minimal ambulation, prefabricated, including fitting and adjustment: Large, Right Examination Category Sub-Category Detail Notes Category Not es Neuroma Pain PALPATION: No interspace pain noted on palpation Neurological SENSORY: Neurological exa m is normal, pain sensation normal, vibration sensation intact, pinprick sensation is normal in the lower extremities, denies, tingling, burning, anesthesia, paresthesia, hyperesthesia, B/L, Neurological exam demonstrates sharp pop dorsum and lateral right 5th mtpj; sharp pop plm rt heel and less pop of pf midsection boo BABINSKI REFLEX: absent TINEL'S COMPRESSION: Negative tarsal marissa arpita, stephie pedis, and medial calcaneal nerves B/L Dermatologic SKIN FINDINGS: Skin exam reveal s normal texture, elasticity, and tugor. There are no masses. The interspaces are clear, B/L Orthopedic GAIT ABNORMALITY: pronated, abducted, B/L MUSCLE STRENGTH: 5/5 all groups in a symmetrical fashion , B/L General Examination GENERAL APPEARANCE: pleasant , alert, well nourished, well developed, well hydrated, with good attention to hygene/body habitus, and in no acute distress ORIENTED: person,place, and ti me Vascular DP PULSES (B): 2/4, B/L PT PULSES (B): 2/4, B/L CAPILLARY FILL TIME: 3 secs. per digit, B/L TEMPERTURE GRADIENT (C): warm to cool, p roximal to distal, B/L TROPHIC CONDITION-TEXTURE/ELASTICITY/TURGOR/HAIR GROWTH (B): normal, B/L EDEMA (C): no edema TELANGECTASIA: absent VARICOSITIES: absent PIGMENTATION: normal, B/L X-Rays - IMAGING REPORT Findings: positive infra-calcaneal exostosis, hypertrophy 5th MTH Fracture: Negative fractures i dentified Foot structure: reveals excess prona tion with, anterior break in cyme line Views: 3 views of Foot, RIG HT Clinical Indication(s): Evaluate for Fra cture, Evaluate Biomechanical Deformity
== END 2025-02-03 15:27 | disposition home or self-care (01) ==
LOC: HO.HMCC 14:09
PROVIDERS: PCP Internal Medicine; Visit Provider Internal Medicine
DX: E78.5 Hyperlipidemia, unspecified (principal); I10 Essential (primary) hypertension

== ENCOUNTER → 2025-02-03 14:08 | Outpatient (BNVA) | payer BC, SELFPAY | PROVIDERS: PCP Internal Medicine; Visit Provider Internal Medicine | DX: E78.5 Hyperlipidemia, unspecified (principal); I10 Essential (primary) hypertension; Z79.899 Other long term (current) drug therapy | CPT/HCPCS: 96127 ==

== ENCOUNTER 2025-04-29 07:46 | Outpatient (REF) | payer BC, SELFPAY ==
--- OUTSIDE RECORDS SUMMARY | 2025-04-29 07:49 | XMS_ITS | Patient Health Record ---
Author Organization [facility] [employer] Address [address] [facility] [address] Care Team Providers Care Aquatic Centre Manager Name Role Phone Sisi Morrow MD Primary Care Provider Travis Sarabia Unavailable [phone] Allergies Allergen (clinical drug ingredient) Drug/Non Drug [...] Problem Status W/U Status Risk Notes Problem [id number] Arthritis of right foot (M19.071) Active confirmed Problem [id number] Arthritis of left foot (M19.072) Active confirmed Plan Of Treatment Pending Test Test Name Order Date X ray : Foot, right 3V 04/04/2024 Insurance Providers Payer Name Payer Address Payer Phone Subscriber Number Group Number Insured Name Patient Relationship to Insured Coverage Start Date Coverage End Date [facility] All Others [address] [place] [address] [phone] [id number] Irineo Jenkins Self - patient is the insured Medical (General) History Medical History History ICD Code Obesity Reflux ( GERD) cough Surgical History Surgery Date(Month/Year) colonoscopy
[2025-04-29 10:34] LABS: Albumin Level 4.5 g/dL (3.5-5.0); Alkaline Phosphatase 57 U/L (39-117); Anion Gap 12 (12-20); Aspartate Amino Transferase 35 U/L (5-37); Bilirubin Total 0.4 mg/dL (0.0-1.0); Blood Urea Nitrogen 24 mg/dL (9-16); Carbon Dioxide 26 mmol/L (22-29); Chloride 106 mmol/L (96-108); Cholesterol 194 mg/dL (<200); Estimated Glomerular Filt Rate > 60; Glucose Fasting 86 mg/dL (60-99); HDL Cholesterol 28 mg/dL (>40); LDL Cholesterol Calculated 130 mg/dL (<100); Potassium 4.4 mmol/L (3.3-5.1); Sodium 140 mmol/L (135-145); Total Protein 7.3 g/dL (6.5-8.0); Triglycerides 184 mg/dL (<150)
[2025-04-29 10:57] LABS: Alanine Aminotransferase 45 U/L (0-40)
== END 2025-04-29 07:47 | disposition home or self-care (01) ==
LOC: HO.HMGCLDS 07:46
PROVIDERS: PCP Internal Medicine; Visit Provider Internal Medicine
DX: E78.5 Hyperlipidemia, unspecified (principal); I10 Essential (primary) hypertension
CPT/HCPCS: 36415; 80053; 80061

== ENCOUNTER 2025-05-05 13:50 | Outpatient (AMB) | payer BC, SELFPAY ==
[2025-05-05 13:55] VITALS: BP 122/74; PULSE 92; RESP 18; TEMP 36.9; O2SAT 95; BMI 40.4
--- NOTE | 2025-05-05 13:55 | A.OFFPC_ITS ---
Vital Signs 05/05/25 13:55 Height 5 ft 10.28 in Weight 284 lb BMI 40.4 BP 122/74 Blood Pressure Location Lt brachial Position Sitting Respiration 18 Pulse 92 Pulse Source Pulse Oximeter Temp 98.4 F Temp Source Oral Pulse Oximetry (%) 95 Oxygen Delivery Method Room Air Intake Visit Reasons: 3m follow up Intake Note: Pt is here today for 3 months follow up visit. Allergies Milk Containing Products (Dairy) (Milk Containing Products) Adverse Reaction (V erified 05/05/25 13:56) Hives Medication List - Last Reconciled 05/05/25 by Sisi Morrow MD lisinopril 10 mg PO BID lisinopril 20 mg PO DAILY nystatin 1 appl topical BID omeprazole 20 mg PO DAILY Tobacco use date assessed: 05/05/25 Dental Screening Dental Screen Date: 12/05/24 HPI 3m follow up HPI Details Pt presents for f/u HTN. Pt c/o of chronic and progressing R shoulder pain with activity but also at night when lying on the right side. The pain is worse when patient lift heavy objects. He denies any weakness or numbness in the right upper extremity [facility] Medical History (Updated 05/05/25 @ 14:45 by Sisi Morrow MD) Osteoarthritis of midfeet, bilateral Obese GERD (gastroesophageal reflux disease) Annual physical exam Surgical History Hx of colonoscopy Social History Housing: House Patient Tobacco Use Status: Former Tobacco user e-Cigarette/Vaping Use: Never Used service: No Current occupational status: employed Cognitive needs: No Hearing needs: No Vision needs: Yes Questionnaire Thrive Questionnaire Date Thrive assessed: 12/01/24 I am a: Patient What is your living situation today?: I have a steady place to live Within the past 12 months, did the food you bought not last and you didn't have the money to get more?: Never true Within the past 12 months, did you worry whether your food would run out before you got money to buy more?: Never true Do you have trouble paying for medicines?: No Do you have trouble getting transportation to medical appointments?: No Do you have trouble paying your heating and electricity bill?: No Do you have trouble taking care of your child, family member or friend?: No Do you have trouble with day-to-day activities such as bathing, preparing meals, shopping, managing finances, etc.?: No Are you currently unemployed and looking for a job?: No Are you interested in more education?: No Please select the resources that you would like help with: None Currently or been in a relationship where the following occur: No concerns reported THRIVE Score: 0 JUAN C-7 AMB Questionnaire JUAN C-7 Date JUAN C - 7 assessed: 05/05/25 Source: Developed by Drs. Thomas Palmer, Darshana Moeller, Sage Reeder and colleagues, with an educational thomas from [employer]. Review of Systems Const All systems reviewed & are unremarkable except as noted in HPI and below Eyes Reports no additional complaints ENT Reports no additional complaints Card Reports no additional complaints Resp Reports no additional complaints GI Reports no additional complaints Reports no additional complaints Physical exam (Primary Care) Vital Signs: Last Vital Signs Temp 98.4 F 05/05/25 13:55 Pulse 92 05/05/25 13:55 Resp 18 05/05/25 13:55 BP 122/74 05/05/25 13:55 Pulse Ox 95 05/05/25 13:55 Oxygen Delivery Method Room Air 05/05/25 13:55 BMI result Body Mass Index 40.4 Tobacco/Smoking Status: Tobacco use Status Tobacco use date assessed 05/05/25 05/05/25 13:57 Patient Tobacco Use Status Former Tobacco user 05/05/25 13:57 e-Cigarette/Vaping Use Never Used 05/05/25 13:57 Thrive Assessment: Date of Thrive Assessment Date Thrive assessed 12/01/24 05/05/25 13:57 Currently or been in a relationship where the following occur: No concerns reported Const General: no acute distress Neck Neck: Yes supple Resp Effort & Inspection: normal respiratory effort Auscultation: clear to auscultation bilaterally Cardio Rhythm: regular rhythm Heart sounds: S1 normal heart sound present and S2 normal heart sound present Extrem Other: There is decreased range of motion in the right shoulder no joint tenderness erythema or warmth Coding Level of Care Code Est Pt Level 4 (93411) Diagnoses Shoulder pain, right M25.511 HTN (hypertension) I10 Hyperlipidemia E78.5 Assessment & Plan Assessment & Plan (1) Shoulder pain, right: Code(s): M25.511 - Pain in right shoulder Category: Medical Plan: Obtain x-ray and referred to physical therapy (2) HTN (hypertension): Code(s): I10 - Essential (primary) hypertension Category: Medical Plan: Continue Lisinopril (3) Hyperlipidemia: Code(s): E78.5 - Hyperlipidemia, unspecified Category: Medical Plan: Continue low-cholesterol diet Orders: Orders Lipid Panel 6 Months E78.5 - Hyperlipidemia, unspecified, I10 - Essential (primary) hypertension Comprehensive [place]. Panel Fast 6 Months E78.5 - Hyperlipidemia, unspecified, I10 - Essential (primary) hypertension XR shoulder RT min 2V Today M25.511 - Pain in right shoulder PT Evaluation and Treatment Today M25.511 - Pain in right shoulder Complete Blood Count Auto Diff 6 Months E78.5 - Hyperlipidemia, unspecified, I10 - Essential (primary) hypertension PSA,Total (Free>4and<10) 6 Months E78.5 - Hyperlipidemia, unspecified, I10 - Essential (primary) hypertension UA w Microscopic 6 Months E78.5 - Hyperlipidemia, unspecified, I10 - Essential (primary) hypertension Medications: New lisinopril 20 mg PO DAILY 90 tabs 1RF Discontinued lisinopril Discontinued Reason: Doctor's Order 10 mg PO BID 180 tabs 3RF
--- OUTSIDE RECORDS SUMMARY | 2025-05-05 14:22 | XMS_ITS | Patient Health Record ---
Author Organization [facility] Address [address] [address] Care Team Providers Care Alligator Shear Operator Name Role Phone Sisi Morrow MD Primary Care Provider Travis Sarabia Unavailable [phone] Allergies Allergen (clinical drug ingredient) Drug/Non Drug [...] 02/12/2024 Active Physical Therapy . . . 2-3x/week; Durat ion: 3-4 weeks 02/12/2024 Active Custom Orthotics as directed 02/12/2024 Active [...] Problem Status W/U Status Risk Notes Problem Arthritis of right foot (6187715231878 104) Arthritis of right foot (M19.071) Active confirmed Problem Arthritis of left foot (8245075658737 109) Arthritis of left foot (M19.072) Active confirmed Plan Of Treatment Pending Test Test Name Order Date X ray : Foot, right 3V 04/04/2024 Insurance Providers Payer Name Payer Address Payer Phone Subscriber Number Group Number Insured Name Patient Relationship to Insured Coverage Start Date [facility]age End Date [facility] [address] [place] [address] [phone] [id number] Irineo Jenkins Self - patient is the insured Medical (General) History Medical History History ICD Code Obesity Reflux ( GERD) cough Surgical History Surgery Date(Month/Year) colonoscopy
== END 2025-05-05 15:22 | disposition home or self-care (01) ==
LOC: HO.HMCC 13:51
PROVIDERS: PCP Internal Medicine; Visit Provider Internal Medicine
DX: M25.511 Pain in right shoulder (principal); I10 Essential (primary) hypertension; E78.5 Hyperlipidemia, unspecified

== ENCOUNTER 2025-05-05 13:50 | Outpatient (REF) | payer BC, SELFPAY ==
--- NOTE | ~2025-05-05 | XR_ITS ---
EXAMINATION: XR SHOULDER, RIGHT CLINICAL INFORMATION: M25.511 - Pain in right shoulder COMPARISON: None available. TECHNIQUE: AP external rotation and Grashey, and Y view of the right shoulder. FINDINGS: AC joint is intact and not degenerated. There is no glenohumeral dislocation. There is no degenerative change. XR/XR shoulder RT min 2V IMPRESSION: Unremarkable right shoulder Electronically signed by: Junior Downing MD 05/05/2025 03:41 PM EDT
--- OUTSIDE RECORDS SUMMARY | 2025-05-05 15:22 | XMS_ITS ---
Author Name [facility] Organization Unknown History of Medication Use Medication Directions Dispensed Refills Start Date End Date Stat us amoxicillin 875 mg-potassium clavulanate 125 mg tablet TAKE 1 TABLET BY MOUTH TWICE DAILY active benzonatate 100 mg capsule TAKE 1 CAPSULE BY MOUTH THREE TIMES DAILY NEEDED FOR COUGH active Nystop 100,000 unit/gram topical powder APPLY EXTERNALLY TWICE DAILY active omeprazole 20 mg capsule,delayed release TAKE 1 CAPSULE BY MOUTH DAILY active Problems Problem Status Onset Date Problem Type Date of Resoluti on Source Osteoarthritis of right hip joint active 2024-07-19 ProblemAct ENS_AONECT 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 Encounters Encounter Type Encounter Reason Primary Diagnosis Location Date Ambulatory [facility] 07/22/2024 Ambulatory [facility] [place] 07/19/2024 Ambulatory [facility] 07/19/2024 Ambulatory [facility] 07/19/2024 Ambulatory [facility] [place] 07/18/2024 Ambulatory [facility] [place] 07/16/2024 Ambulatory [facility] [place] 07/16/2024 Ambulatory [facility] [place] 07/16/2024 Ambulatory [facility] [place] 07/02/2024 Ambulatory [facility] [place] 07/02/2024
== END 2025-05-05 13:51 | disposition home or self-care (01) ==
LOC: HO.HMGCX 13:50
PROVIDERS: PCP Internal Medicine; Visit Provider Internal Medicine
DX: M25.511 Pain in right shoulder (principal)
CPT/HCPCS: 73030

== ENCOUNTER → 2025-05-05 15:02 | Outpatient (BNV) | payer BC, SELFPAY | PROVIDERS: PCP Internal Medicine; Visit Provider Radiology Diagnostic Radiology | DX: M25.511 Pain in right shoulder (principal) | CPT/HCPCS: 73030 ==